=== PATIENT | female | born 1930 | race Caucasian/White ===

== ENCOUNTER → 2018-09-15 | Outpatient (CLI) | payer OTHER, BC | LOC: CIMAGING 14:31 | PROVIDERS: ATTEND Internal Medicine | DX: G31.9 Degenerative disease of nervous system, unspecified (principal) | CPT/HCPCS: 70450-PO ==

== ENCOUNTER 2018-10-23 17:24 | Inpatient (IN) | payer OTHER, BC ==
--- NOTE | 2018-10-23 18:03 | EDPHY ---
H & P Stated Complaint: General malaise/no appetite Time Seen by Provider: 10/23/18 17:46 HPI/ROS: CHIEF COMPLAINT: Cough, vomiting, diarrhea, generalized weakness HISTORY OF PRESENT ILLNESS: The patient is referred to the emergency department from her primary care provider's office for evaluation of cough, vomiting and diarrhea. The patient has had the symptoms for the past several days. She has had a very poor appetite with little in the way of p.o. Intake. The patient does report decreased urine output. Past medical history is significant for bladder cancer and transient renal failure. The patient denies any acute abdominal pain. She denies any recent medication changes. The patient denies any recent travel outside the [place]. REVIEW OF SYSTEMS: A comprehensive 10 point review of systems is otherwise negative aside from elements mentioned in the history of present illness. Source: Patient Exam Limitations: No limitations - Personal History Current Tetanus/Diphtheria Vaccine: Unsure - Medical/Surgical History Hx Asthma: No Hx Chronic Respiratory Disease: No Hx Diabetes: No Hx Cardiac Disease: Yes Hx Renal Disease: Yes Hx Cirrhosis: No Hx Alcoholism: No Hx HIV/AIDS: No Hx Splenectomy or Spleen Trauma: No Other PMH: gout, bladder ca and reconstruction, heart stent x 2, appy, tonsils , L JORGE, gall bladdar removed, TIA - Social History Smoking Status: Former smoker - Physical Exam Exam: General Appearance: Elderly female Eyes: Pupils equal and round no pallor or injection ENT, Mouth: Dry mucous membranes Respiratory: There are no retractions, lungs are clear to auscultation Cardiovascular: Regular rate and rhythm Gastrointestinal: Minimal epigastric tenderness to palpation Neurological: A&O, normal motor function, normal sensory exam, normal cranial nerves Skin: Warm and dry, no rashes Musculoskeletal: Neck is supple nontender Extremities: symmetrical, full range of motion Psychiatric: Patient is oriented X 3, there is no agitation Constitutional: Initial Vital Signs Heart Rate 93 10/23/18 17:30 Respiratory Rate 18 10/23/18 17:30 Blood Pressure 140/76 H 10/23/18 17:30 O2 Delivery Mode Room Air Allergies/Adverse Reactions: celecoxib [From Celebrex] Allergy (Verified 10/23/18 19:20) Unknown Home Medications: Medication Instructions Recorded Aspirin [Aspirin 81mg (*)] 81 mg PO DAILY 10/03/11 Fluticasone Nasal [Flonase Nasal 1 sprays [place]ACH[place] DAILY 03/06/12 [place]] Sodium Bicarbonate [Na Bicarb] 1,300 mg PO BID 03/06/12 Allopurinol [Allopurinol 100 MG 100 mg PO DAILY 02/20/16 (*)] Atorvastatin Calcium [Lipitor 10 10 mg PO HS 02/20/16 mg (*)] Metoprolol Succinate Xr [Toprol Xl 25 mg PO DAILY 02/20/16 25 mg (*)] traMADol [Ultram 50 mg (*)] 50 - 100 mg PO Q8 PRN 02/20/16 Medical Decision Making - Diagnostics Imaging Results: Imaging Impressions Chest X-Ray 10/23/18 17:47 Impression: 1. Bronchitis/airways disease. 2. No focal pneumonia. 3. Mild old benign-appearing compression fractures midthoracic spine. Consider follow-up DEXA bone scan evaluation when the patient's medical condition permits. ED Course/Re-evaluation: The patient presents to the ED with vomiting, diarrhea and cough for the past several days. The patient does appear clinically dehydrated. Chest x-ray demonstrates no evidence of a focal infiltrate. The patient is afebrile in the emergency department. Blood pressure and heart rate are also normal. Workup in the emergency department consisted of laboratory studies which demonstrate acute renal failure. The patient's creatinine is 4 which is up from her baseline of 2. Her acute renal failure is likely secondary to dehydration in the setting of viral gastroenteritis and bronchitis. The patient was treated with 2 L of normal saline in the emergency department. She has no evidence of hyperkalemia. Her EKG demonstrates no significant arrhythmia. The patient will be admitted to the hospitalist service in the setting of her dehydration and acute renal failure. Differential Diagnosis: Differential diagnosis considered includes dehydration, renal failure, bronchitis, pneumonia, viral syndrome - Data Points Laboratory Results: Laboratory Results 10/23/18 18:07 10/23/18 18:07 10/23/18 10/23/18 18:07 18:07 WBC 9.75 10^3/uL H 10^3/uL (3.80-9.50) RBC 4.38 10^6/uL 10^6/uL (4.18-5.33) Hgb 13.6 g/dL g/dL (12.6-16.3) Hct 41.1 % % (38.0-47.0) MCV 93.8 fL fL (81.5-99.8) MCH 31.1 pg pg (27.9-34.1) MCHC 33.1 g/dL g/dL (32.4-36.7) RDW 15.1 % % (11.5-15.2) Plt Count 279 10^3/uL 10^3/uL (150-400) MPV 10.4 fL fL (8.7-11.7) Neut % (Auto) 85.4 % H % (39.3-74.2) Lymph % (Auto) 7.3 % L % (15.0-45.0) [place] % (Auto) 6.4 % % (4.5-13.0) Eos % (Auto) 0.1 % L % (0.6-7.6) Baso % (Auto) 0.4 % % (0.3-1.7) Nucleat RBC Rel Count 0.0 % % (0.0-0.2) Absolute Neuts (auto) 8.33 10^3/uL H 10^3/uL (1.70-6.50) Absolute Lymphs (auto) 0.71 10^3/uL L 10^3/uL (1.00-3.00) Absolute Monos (auto) 0.62 10^3/uL 10^3/uL (0.30-0.80) Absolute Eos (auto) 0.01 10^3/uL L 10^3/uL (0.03-0.40) Absolute Basos (auto) 0.04 10^3/uL 10^3/uL (0.02-0.10) Absolute Nucleated RBC 0.00 10^3/uL 10^3/uL (0-0.01) Immature Gran % 0.4 % % (0.0-1.1) Immature Gran # 0.04 10^3/uL 10^3/uL (0.00-0.10) Sodium 141 mEq/L mEq/L (135-145) Potassium 5.0 mEq/L mEq/L (3.3-5.0) Chloride 116 mEq/L H mEq/L (97-110) Carbon Dioxide 8 mEq/l L* mEq/l (22-31) Anion Gap 17 mEq/L H mEq/L (6-14) BUN 92 mg/dL H mg/dL (7-23) Creatinine 4.0 mg/dL H mg/dL (0.6-1.0) Estimated GFR 11 Glucose 107 mg/dL H mg/dL (70-100) Calcium 9.9 mg/dL mg/dL (8.5-10.4) Total Bilirubin 0.4 mg/dL mg/dL (0.1-1.4) Conjugated Bilirubin 0.4 mg/dL mg/dL (0.0-0.5) Unconjugated Bilirubin 0.0 mg/dL mg/dL (0.0-1.1) AST 23 IU/L IU/L (14-46) ALT 10 IU/L IU/L (9-52) Alkaline Phosphatase 111 IU/L IU/L (38-126) Total Protein 7.5 g/dL g/dL (6.3-8.2) Albumin 4.6 g/dL g/dL (3.5-5.0) Lipase 325 IU/L H IU/L (23-300) Medications Given: Discontinued Medications Sodium Chloride (Ns) 1,000 mls @ 0 mls/hr IV EDNOW ONE; Wide Open PRN Reason: Protocol Stop: 10/23/18 18:40 Last Admin: 10/23/18 18:44 Dose: 1,000 mls Departure - Departure Disposition: [facility] Inpatient Acute Clinical Impression: Gastroenteritis, Bronchitis, Dehydration, Acute renal failure Condition: Good Referrals: James Evans MD [Primary Care Provider] - As per Instructions
[2018-10-23 18:18] LABS: PLATELET COUNT 279 10^3/uL (150-400)
[2018-10-23] MEDS ORDERED: NS 1,000 ML IV ONE ×2 (18:39)
--- NOTE | 2018-10-23 20:39 | CPEKG ---
Test Reason : OPEN Blood Pressure : / mmHG Vent. Rate : 094 BPM Atrial Rate : 095 BPM P-R Int : 190 ms QRS Dur : 097 ms QT Int : 358 ms P-R-T Axes : 078 -41 -03 degrees QTc Int : 448 ms Sinus rhythm Inferior infarct, old Anterior infarct, old Confirmed by Narciso Dave ([id number]) on 10/23/2018 8:38:17 PM Referred By: Confirmed By:Narciso Dave
[2018-10-23] MEDS ORDERED: ONDANSETRON 4 MG/2 ML VIAL IVP PRN (21:22)
[2018-10-23] MEDS ORDERED: ACETAMINOPHEN 325 MG TAB PO PRN (21:22)
[2018-10-23] MEDS ORDERED: ONDANSETRON DISINTEGRATING 4 MG TAB PO PRN (21:22)
[2018-10-23] MEDS ORDERED: traMADol 50 MG TAB PO PRN (21:25)
[2018-10-23] MEDS: NS 1,000 ML IV SCH (22:26)
[2018-10-23] MEDS: HEPARIN 5,000 UNIT/0.5 ML INJ SC SCH (22:36)
--- NOTE | 2018-10-23 23:05 | PDGENHP ---
History and Physical - Chief Complaint weakness, vomiting and diarrhea - History of Present Illness 88yo F with CKD, CAD s/p remote stent placement, TIA here with 3 days of general malaise, anorexia, vomiting and diarrhea. She has been unable to keep anything down over this time. No blood in vomit or stools. She has mostly been staying in bed. Reports mild non-productive cough but no dyspnea. Denies fevers , chills, myalgias, arthralgais, rashes. No sick contacts. No recent travel or antibiotics. She came to ED at recommendation of son with whom she lives. In the ED, she was found to have acute renal insufficiency. She was given 2L normal saline and is being admitted for ABRAHAM, dehydration. Case discussed with ED physician Artemio Dave. Of note, patient reports being quite depressed over the last few months. History Information - Allergies/Home Medication List Allergies/Adverse Reactions: celecoxib [From Celebrex] Allergy (Verified 10/23/18 19:20) Unknown Home Medications: Aspirin [Aspirin 81mg (*)] 81 mg PO DAILY 10/03/11 [Last Taken 02/19/16] Fluticasone Nasal [Flonase Nasal [place]] 1 sprays EACHNARE DAILY 03/06/12 [Last Taken 03/06/12] Sodium Bicarbonate [Na Bicarb] 1,300 mg PO BID 03/06/12 [Last Taken 02/19/16] Allopurinol [Allopurinol 100 MG (*)] 100 mg PO DAILY 02/20/16 [Last Taken ] Atorvastatin Calcium [Lipitor 10 mg (*)] 10 mg PO HS 02/20/16 [Last Taken ] Metoprolol Succinate Xr [Toprol Xl 25 mg (*)] 25 mg PO DAILY 02/20/16 [Last Taken 02/19/16] traMADol [Ultram 50 mg (*)] 50 - 100 mg PO Q8 PRN 02/20/16 [Last Taken 02/19/16] I have personally reviewed and updated: family history, medical history, social history, surgical history - Past Medical History Additional medical history: CKD (baseline Cr ~2.0), CAD s/p stents x2 for ACS in 2000, ? TIA, HTN, HLD, bladder cancer s/p neobladder at [facility] in 2004 - Surgical History Reports: no pertinent surgical hx - Family History Positive for: non-pertinent - Social History Smoking Status: Former smoker Alcohol Use: None Drug Use: None Additional social history: Lives with son, independent in ADLs. about a year ago. Review of Systems Review of Systems: ROS: 10pt was reviewed & negative except for what was stated in HPI & below Physical Exam Physical Exam: Temp Pulse Resp BP Pulse Ox 36.4 C 98 16 129/59 H 98 10/23/18 20:30 10/23/18 20:30 10/23/18 20:30 10/23/18 20:30 10/23/18 20:30 Constitutional: no apparent distress, appears nourished, not in pain Eyes: PERRL, anicteric sclera, EOMI Ears, Nose, Mouth, Throat: moist mucous membranes, hearing normal, ears appear normal, no oral mucosal ulcers Cardiovascular: regular rate and rhythym, no murmur, rub, or gallop, No edema Respiratory: no respiratory distress, no rales or rhonchi, clear to auscultation Gastrointestinal: normoactive bowel sounds, soft, non-tender abdomen, no palpable masses Genitourinary: no bladder fullness, no bladder tenderness Skin: warm, normal color, no rashes or abrasions, no fluctuance, no induration, No mottled Musculoskeletal: full muscle strength, no muscle tenderness, normal joint ROM, no joint effusions Neurologic: AAOx3 Psychiatric: interacting appropriately, not anxious, not encephalopathic, thought process linear Lab Data & Imaging Review 10/23/18 18:07 10/23/18 18:07 WBC 9.75 10^3/uL (3.80-9.50) H 10/23/18 18:07 RBC 4.38 10^6/uL (4.18-5.33) 10/23/18 18:07 Hgb 13.6 g/dL (12.6-16.3) 10/23/18 18:07 Hct 41.1 % (38.0-47.0) 10/23/18 18:07 MCV 93.8 fL (81.5-99.8) 10/23/18 18:07 MCH 31.1 pg (27.9-34.1) 10/23/18 18:07 MCHC 33.1 g/dL (32.4-36.7) 10/23/18 18:07 RDW 15.1 % (11.5-15.2) 10/23/18 18:07 Plt Count 279 10^3/uL (150-400) 10/23/18 18:07 MPV 10.4 fL (8.7-11.7) 10/23/18 18:07 Neut % (Auto) 85.4 % (39.3-74.2) H 10/23/18 18:07 Lymph % (Auto) 7.3 % (15.0-45.0) L 10/23/18 18:07 [place] % (Auto) 6.4 % (4.5-13.0) 10/23/18 18:07 Eos % (Auto) 0.1 % (0.6-7.6) L 10/23/18 18:07 Baso % (Auto) 0.4 % (0.3-1.7) 10/23/18 18:07 Nucleat RBC Rel Count 0.0 % (0.0-0.2) 10/23/18 18:07 Absolute Neuts (auto) 8.33 10^3/uL (1.70-6.50) H 10/23/18 18:07 Absolute Lymphs (auto) 0.71 10^3/uL (1.00-3.00) L 10/23/18 18:07 Absolute Monos (auto) 0.62 10^3/uL (0.30-0.80) 10/23/18 18:07 Absolute Eos (auto) 0.01 10^3/uL (0.03-0.40) L 10/23/18 18:07 Absolute Basos (auto) 0.04 10^3/uL (0.02-0.10) 10/23/18 18:07 Absolute Nucleated RBC 0.00 10^3/uL (0-0.01) 10/23/18 18:07 Immature Gran % 0.4 % (0.0-1.1) 10/23/18 18:07 Immature Gran # 0.04 10^3/uL (0.00-0.10) 10/23/18 18:07 Sodium 141 mEq/L (135-145) 10/23/18 18:07 Potassium 5.0 mEq/L (3.3-5.0) 10/23/18 18:07 Chloride 116 mEq/L (97-110) H 10/23/18 18:07 Carbon Dioxide 8 mEq/l (22-31) L* 10/23/18 18:07 Anion Gap 17 mEq/L (6-14) H 10/23/18 18:07 BUN 92 mg/dL (7-23) H 10/23/18 18:07 Creatinine 4.0 mg/dL (0.6-1.0) H 10/23/18 18:07 Estimated GFR 11 10/23/18 18:07 Glucose 107 mg/dL (70-100) H 10/23/18 18:07 Calcium 9.9 mg/dL (8.5-10.4) 10/23/18 18:07 Total Bilirubin 0.4 mg/dL (0.1-1.4) 10/23/18 18:07 Conjugated Bilirubin 0.4 mg/dL (0.0-0.5) 10/23/18 18:07 Unconjugated Bilirubin 0.0 mg/dL (0.0-1.1) 10/23/18 18:07 AST 23 IU/L (14-46) 10/23/18 18:07 ALT 10 IU/L (9-52) 10/23/18 18:07 Alkaline Phosphatase 111 IU/L (38-126) 10/23/18 18:07 Total Protein 7.5 g/dL (6.3-8.2) 10/23/18 18:07 Albumin 4.6 g/dL (3.5-5.0) 10/23/18 18:07 Lipase 325 IU/L (23-300) H 10/23/18 18:07 Urine Color YELLOW 10/23/18 20:10 Urine Appearance MODERATELY TURBID 10/23/18 20:10 Urine pH 7.0 (5.0-7.5) 10/23/18 20:10 Ur Specific [place] 1.011 (1.002-1.030) 10/23/18 20:10 Urine Protein 2+ (NEGATIVE) H 10/23/18 20:10 Urine Ketones NEGATIVE (NEGATIVE) 10/23/18 20:10 Urine Blood 1+ (NEGATIVE) H 10/23/18 20:10 Urine Nitrate NEGATIVE (NEGATIVE) 10/23/18 20:10 Urine Bilirubin NEGATIVE (NEGATIVE) 10/23/18 20:10 Urine Urobilinogen NEGATIVE EU (0.2-1.0) 10/23/18 20:10 Ur Leukocyte Esterase 3+ (NEGATIVE) H 10/23/18 20:10 Urine RBC 10-15 /hpf (0-3) H 10/23/18 20:10 Urine WBC 50-182 /hpf (0-3) H 10/23/18 20:10 Ur Epithelial Cells 1+ /lpf (NONE-1+) 10/23/18 20:10 Urine Bacteria 1+ /hpf (NONE SEEN) H 10/23/18 20:10 Urine Mucus TRACE /lpf (NONE-1+) 10/23/18 20:10 Urine Glucose NEGATIVE (NEGATIVE) 10/23/18 20:10 Visualized and Interpreted Chest x-ray results: Yes Interpretation: CXR: mild peribronchial thickening c/w bronchitis, no infiltrate or effusion Visualized and Interpreted EKG results: Yes EKG additional interpertation: ECG: NSR, anterior and inferior q waves (old), no acute ischemic changes Assessment & Plan Assessment: 88yo F with CKD, CAD s/p remote stent placement here with 3 days of general malaise, anorexia, vomiting and diarrhea consistent with viral gastroenteritis found to have ABRAHAM. Plan: 1. ABRAHAM on CKD: Consistent with prerenal state from poor PO. Will send urine studies and provide IVF and recheck in AM. If not improving, obtain imaging. 2. Vomiting, diarrhea: Consistent with viral process. GI PCR pending. Supportive care, IVF. 3. Cough: No pneumonia on CXR. Oxygenating well on room air. Respiratory viral panel sent in ED and pending. Trial guaifenesin. 4. Anion gap metabolic acidosis: Likely due to renal failure. Will recheck after fluids. 5. CAD: No anginal symptoms. Continue aspirin, statin. 6. HTN: BP controlled, continue metformin. VTE ppx: SQH Diet: regular Code: DNR Dispo: Admit under observation
[2018-10-24] MEDS: HEPARIN 5,000 UNIT/0.5 ML INJ SC SCH ×3 (06:43→22:02)
--- NOTE | 2018-10-24 08:13 | ASMTLACE ---
PARMINDER Acuity / Level of Answers: Yes Care: Did the patient have an inpatient admission? Comorbidities - select Answers: Cerebrovascular disease all that apply (CVA, TIA, aneurysms, vasc ular dementia) Coronary Artery Disease Moderate or severe liver or renal disease Opioid dependence / Chronic pain Other Notes: Hx of bladder cancer; HLD; HTN # of Emergency department Answers: 1-2 visits in the last 6 months Score: 16 Date Signed: 10/24/2018 08:12 AM Electronically Signed By:Pauline Ferreira
[2018-10-24] MEDS: ASPIRIN 81 MG CHEWABLE TAB PO SCH (09:46)
[2018-10-24] MEDS: SODIUM BICARBONATE 650 MG TAB PO SCH ×2 (09:46→22:03)
[2018-10-24] MEDS: guaiFENesin 600 MG TAB.ER PO SCH ×2 (09:46→22:02)
[2018-10-24] MEDS: METOPROLOL SUCCINATE XR 25 MG TAB PO SCH (09:46)
[2018-10-24] MEDS: FLUTICASONE NASAL 120 SPRAYS/16 GM MDI EACHNARE SCH (09:56)
--- NOTE | 2018-10-24 14:37 | HOSPPROG ---
Hospitalist Progress Note Assessment/Plan: 88yo F with CKD, CAD s/p remote stent placement here with 3 days of general malaise, anorexia, vomiting and diarrhea consistent with viral gastroenteritis found to have ABRAHAM. 1. ABRAHAM on CKD - Consistent with prerenal state from poor PO. - Urine studies sent - Cr improving with IVF, 3.4 this AM from 4.0 yesterday, baseline ~2.0 - Continue to monitor I/O, BMP, avoid nephrotoxic agents 2. Vomiting, diarrhea: Consistent with viral process. GI PCR pending. Supportive care, IVF. 3. Cough: No pneumonia on CXR. Oxygenating well on room air. Respiratory viral panel negative. Trial guaifenesin. 4. Anion gap metabolic acidosis: Likely due to renal failure. Continue to monitor 5. CAD: No anginal symptoms. Continue aspirin, statin. 6. HTN: BP controlled, continue metformin. VTE ppx: SQH Diet: regular Code: DNR Dispo:Pending clinical course, improvement in Cr Subjective: Patient reports no episodes of diarrhea of vomiting since admission Objective: Vital Signs Temp Pulse Resp BP Pulse Ox 36.5 C 73 18 99/52 L 97 10/24/18 12:22 10/24/18 12:22 10/24/18 12:22 10/24/18 12:22 10/24/18 12:22 Microbiology 10/23/18 20:00 Respiratory Panel (PCR) - Final Nasal, Sinus - Swab No Organism Detected By Pcr Laboratory Results 10/24/18 05:00 10/23/18 10/24/18 10/25/18 05:59 05:59 05:59 Intake Total 200 383 Balance 200 383 - Physical Exam Constitutional: chronically ill appearing Eyes: PERRL Ears, Nose, Mouth, Throat: dry mucous membranes Cardiovascular: regular rate and rhythym Respiratory: no respiratory distress Gastrointestinal: soft, non-tender abdomen Genitourinary: no bladder tenderness Skin: warm Neurologic: AAOx3 Psychiatric: interacting appropriately ICD10 Worksheet Patient Problems: Problems Problem Status Onset Acute renal failure Acute Bronchitis Acute Dehydration Acute Gastroenteritis Acute Acute renal failure syndrome Active Hyperkalemia Active Hyponatremia Active Metabolic acidosis Active Pyelonephritis Active Right humeral fracture Acute
[2018-10-24] MEDS: NS 1,000 ML IV SCH (14:57)
--- NOTE | 2018-10-24 15:52 | ASMTCMCOM ---
CM Note CM Note Notes: Pt admitted for viral gastroenteritis and dehydration and renal failure after several days of malaise and nausea, vomiting. Pt is a and her son lives with her. PT is recommending HC and pt is agreeable to [facility]. OT has not evaluated. [facility] available to accept over the weekend if for PT/OT only. CM to follow. D/C Plan: [facility] PT/OT Date Signed: 10/24/2018 03:51 PM Electronically Signed By:Tammie Gillespie
--- NOTE | 2018-10-24 15:53 | PDMN ---
Medical Necessity Medical necessity: Pt meets IP criteria as of 10/24/2018 per and MCG M-170 ( gastroenteritis); los > 2 mn for ongoing tx and management of vomiting and diarrhea consistent with viral gastroenteritis, ABRAHAM on CKD, and metabolic acidosis; requiring IVF, serial labs, and therapies.
[2018-10-24] MEDS: ATORVASTATIN CALCIUM 10 MG TAB PO SCH (22:02)
[2018-10-25] MEDS: HEPARIN 5,000 UNIT/0.5 ML INJ SC SCH ×3 (05:27→21:12)
[2018-10-25] MEDS: NS 1,000 ML IV SCH (05:31)
[2018-10-25] MEDS: ASPIRIN 81 MG CHEWABLE TAB PO SCH (10:06)
[2018-10-25] MEDS: guaiFENesin 600 MG TAB.ER PO SCH ×2 (10:07→21:11)
[2018-10-25] MEDS: SODIUM BICARBONATE 650 MG TAB PO SCH ×2 (10:07→21:11)
[2018-10-25] MEDS: METOPROLOL SUCCINATE XR 25 MG TAB PO SCH (10:08)
--- NOTE | 2018-10-25 13:13 | HOSPPROG ---
Hospitalist Progress Note Assessment/Plan: 88yo F with CKD, CAD s/p remote stent placement here with 3 days of general malaise, anorexia, vomiting and diarrhea consistent with viral gastroenteritis found to have ABRAHAM. 1. ABRAHAM on CKD - Consistent with prerenal state from poor PO. - Cr improving with IVF, 2.6 this AM from 4.0 on admission, baseline ~2.0 - Continue to monitor I/O, BMP, avoid nephrotoxic agents 2. Vomiting, diarrhea: Resolved, Consistent with viral process. GI PCR pending. Supportive care, IVF. 3. Cough: No pneumonia on CXR. Oxygenating well on room air. Respiratory viral panel negative. Trial guaifenesin. 4. Anion gap metabolic acidosis: Likely due to renal failure. Continue to monitor 5. CAD: No anginal symptoms. Continue aspirin, statin. 6. HTN: BP controlled, continue metformin. VTE ppx: SQH Diet: regular Code: DNR Dispo:Pending clinical course, improvement in Cr Subjective: Patient reports no nausea, diarrhea overnight Objective: Vital Signs Temp Pulse Resp BP Pulse Ox 36.8 C 59 L 16 113/72 92 10/25/18 08:00 10/25/18 12:02 10/25/18 12:02 10/25/18 12:02 10/25/18 12:02 Laboratory Results 10/25/18 04:50 10/24/18 10/25/18 10/26/18 05:59 05:59 05:59 Intake Total 1962 Output Total 400 Balance 1562 - Physical Exam Constitutional: no apparent distress Eyes: PERRL Ears, Nose, Mouth, Throat: moist mucous membranes Cardiovascular: regular rate and rhythym Respiratory: no respiratory distress Gastrointestinal: soft, non-tender abdomen Skin: warm Neurologic: AAOx3 Psychiatric: interacting appropriately ICD10 Worksheet Patient Problems: Problems Problem Status Onset Acute renal failure Acute Bronchitis Acute Dehydration Acute Gastroenteritis Acute Acute renal failure syndrome Active Hyperkalemia Active Hyponatremia Active Metabolic acidosis Active Pyelonephritis Active Right humeral fracture Acute
[2018-10-25] MEDS: FLUTICASONE NASAL 120 SPRAYS/16 GM MDI EACHNARE SCH (15:24)
[2018-10-25] MEDS: ATORVASTATIN CALCIUM 10 MG TAB PO SCH (21:11)
[2018-10-26] MEDS: HEPARIN 5,000 UNIT/0.5 ML INJ SC SCH (06:06)
[2018-10-26 08:20] VITALS: BP 113/65
[2018-10-26] MEDS: guaiFENesin 600 MG TAB.ER PO SCH (09:03)
[2018-10-26] MEDS: METOPROLOL SUCCINATE XR 25 MG TAB PO SCH (09:03)
[2018-10-26] MEDS: SODIUM BICARBONATE 650 MG TAB PO SCH (09:03)
[2018-10-26] MEDS: ASPIRIN 81 MG CHEWABLE TAB PO SCH (09:03)
[2018-10-26] MEDS: FLUTICASONE NASAL 120 SPRAYS/16 GM MDI EACHNARE SCH (09:05)
--- NOTE | 2018-10-26 10:18 | PDIAF ---
- Diagnosis Code Status: Do Not Resuscitate - Medication Management Discharge Medications: electronically signed and located in the Home Medication List. - Orders Services needed: Home Care, Physical Therapy, Occupational Therapy Home Care Face to Face: I certify that this patient was under my care and that I had the required [id number] encounter meeting the encounter requirements on the discharge day. My findings support the fact that the patient is homebound as defined in Home Care Face to Face Continued: CMS Chapter 7 Medicare Benefits Manual 30.1.1 , The condition of the patient is such that there exists a normal inability to leave home and consequently, leaving home would require a considerable and taxing effort. Isolation Type: None - Follow Up Care Current Providers and Referrals: James Evans MD [Primary Care Provider] - As per Instructions
--- NOTE | 2018-10-26 13:20 | PDDCSUM ---
Discharge Summary Discharge Summary: Date of Admission: 10/24/2018 Date of Discharge: 10/26/2018 Consults: N/A Followup: PCP Hospital Course Problem List: 88yo F with CKD, CAD admitted with 3 days of general malaise, anorexia, vomiting and diarrhea consistent with viral gastroenteritis found to have ABRAHAM. 1. ABRAHAM on CKD - Consistent with prerenal state from poor PO. - Cr improved with IVF, 2.3 on day of discharge from 4.0 on admission, baseline ~2.0 2. Vomiting, diarrhea: Resolved, Consistent with viral process. Supportive care , s/p IVF. 3. Cough: No pneumonia on CXR. Oxygenating well on room air. Respiratory viral panel negative. 4. Anion gap metabolic acidosis: Likely due to renal failure. Continue to monitor 5. CAD: No anginal symptoms. Continue aspirin, statin. 6. HTN: BP controlled, continue metformin. Time spent on discharge was >35 minutes with >50% of time spent on patient education and counseling.
--- NOTE | 2018-10-26 19:01 | ASMTCMCOM ---
CM Note CM Note Notes: CM Note from Saturday10/25/18 - previously documented under notes in [employer] d/t [employer] downtime: Reviewed chart, spoke with Dr. Raines regarding discharge plan of care, pt's progress. Per MD, plan to monitor pt another noc; possible discharge Saturday. PT recommends HHC. OT recommends HHC vs SNF with 24 hr supervision and ongoing therapy. Per prior CM notes, [facility] (PT/OT) set up. CM will assess pt on Saturday10/26/18 for HHC vs SNF and will continue to follow. Discharge Plan: To be determined, likely home with [facility] (PT/OT) Date Signed: 10/26/2018 07:01 PM Electronically Signed By:Aleshia Turner RN
--- NOTE | 2018-10-26 19:09 | ASDISCHSUM ---
Discharge Information Plan Status:Home with Home Health Medically Cleared to Leave:10/25/2018 Discharge Date:10/26/2018 02:33 PM D/C Disposition:Home Health Service [facility] D/C Disposition:Home, Routine, Self-Care Projected Discharge Date:10/26/2018 11:00 AM Transportation at D/C:Family Discharge Delay Reason: Follow-Up Date:10/26/2018 11:00 AM Discharge Slot:2 - 12:01 pm - 18:00 pm Final Diagnosis:Dehydration, renal failure, bladder cancer Placement Information Referral Type:*Home Health Care Services Referral ID:[id number] Provider Name:[facility] [address] [address] Address 2: City:[place] Selection Factors:Patient/Family Choice State:[place] Patient Contact Information Contact Name:GREGORY Relationship: Address:[address] Work Phone: City:[place] Alternate Phone: [facility]/Zip Code:[place] [address] Email: Financial Information Financial Class:Medicare Primary Plan Desc:MEDICARE OUTPATIENT Primary Plan Number:[id number] Secondary Plan Desc:[employer] FEDERAL PLAN Secondary Plan Number:[id number] Assessment Information LACE LACE Acuity / Level of Answers: Yes Care: Did the patient have an inpatient admission? Comorbidities - select Answers: Cerebrovascular disease all that apply (CVA, TIA, aneurysms, vasc ular dementia) Coronary Artery Disease Moderate or severe liver or renal disease Opioid dependence / Chronic pain Other Notes: Hx of bladder cancer; HLD; HTN # of Emergency department Answers: 1-2 visits in the last 6 months Score: 16 Date Signed: 10/24/2018 08:12 AM Electronically Signed By:Pauline Ferreira [facility] CM Progress Note CM Note CM Note Notes: Pt admitted for viral gastroenteritis and dehydration and renal failure after several days of malaise and nausea, vomiting. Pt is a and her son lives with her. PT is recommending HC and pt is agreeable to [facility]. OT has not evaluated. [facility] available to accept over the weekend if for PT/OT only. CM to follow. D/C Plan: [facility] PT/OT Date Signed: 10/24/2018 03:51 PM Electronically Signed By:Tammie Gillespie [facility] CM Progress Note CM Note CM Note Notes: CM Note from Saturday10/25/18 - previously documented under notes in [employer] d/t [email or web address] downtime: Reviewed chart, spoke with Dr. Raines regarding discharge plan of care, pt's progress. Per MD, plan to monitor pt another noc; possible discharge Saturday. PT recommends HHC. OT recommends HHC vs SNF with 24 hr supervision and ongoing therapy. Per prior CM notes, [facility] (PT/OT) set up. CM will assess pt on Saturday10/26/18 for HHC vs SNF and will continue to follow. Discharge Plan: To be determined, likely home with [facility] (PT/OT) Date Signed: 10/26/2018 07:01 PM Electronically Signed By:Aleshia Turner RN Case Management Discharge Plan Note Case Management Discharge Discharge Order Complete? Answers: Yes Patient to Obtain Answers: Independently Medications Transportation Arranged Answers: Family/Friends Transport will Pick (Date 10/26/2018 12:00 AM & Time) EMTALA Complete Answers: No Notes: N/A Case Management Transport Answers: No Notes: N/A Form Complete Faxed Final Orders Answers: Yes Notes: Sent via [employer]; confirmed receipt with [facility] Agency/Facility Transfer Answers: Yes Notes: Sent via Report Printed & Faxed to [employer]; confirmed Receiving Agency receipt with [facility] Family Notified Answers: Yes Notes: Son to provide transporation Discharge Comments Notes: Reviewed chart, spoke with MARITZA Martin regarding discharge plan of care, pt's progress. Per Mario pt to discharge home today. Met with pt to discuss potential needs. Home health care discussed with pt. Explained PT/OT recommendations. Pt reluctant to accept HHC secondary to potential costs/copays. Encouraged pt to have the PT eval on Saturday10/27/18 and to make a decision after talking to [facility] regarding cost. Pt agreeable. Address and phone number verified. Pt agreeable to homebound status. IM signed; copy placed in chart. Referral sent. Call placed to [facility], on-call RN with [facility]. [facility] agrees to accept pt with start of care for Saturday10/27/18 (PT/OT services). [facility] for [facility] to call pt regarding insurance benefits/cost/copays on Saturday. Pt to follow up as directed. CM available for any further issues or concerns. Discharge Plan: Home with [facility] (PT/OT services) Date Signed: 10/26/2018 07:08 PM Electronically Signed By:Aleshia Turner RN Intervention Information Intervention Type:*Incorrect Registration Date of Service:10/23/2018 10:28 AM Patient Type:Inpatient Staff Member:Prema Ortiz Hours: Discipline: Severity: Comment: Intervention Type:*IM-Signed Date of Service:10/26/2018 06:59 PM Patient Type:Inpatient Staff Member:MARITZA Turner Taylor Hours: Discipline: Severity: Comment:
--- NOTE | 2018-10-26 19:09 | ASMTDCNOTE ---
Case Management Discharge Discharge Order Complete? Answers: Yes Patient to Obtain Answers: Independently Medications Transportation Arranged Answers: Family/Friends Transport will Pick (Date 10/26/2018 12:00 AM & Time) EMTALA Complete Answers: No Notes: N/A Case Management Transport Answers: No Notes: N/A Form Complete Faxed Final Orders Answers: Yes Notes: Sent via [employer]; confirmed receipt with [facility] Agency/Facility Transfer Answers: Yes Notes: Sent via Report Printed & Faxed to [employer]; confirmed Receiving Agency receipt with [facility] Family Notified Answers: Yes Notes: Son to provide transporation Discharge Comments Notes: Reviewed chart, spoke with MARITZA Martin regarding discharge plan of care, pt's progress. Per Mario, pt to discharge home today. Met with pt to discuss potential needs. Home health care discussed with pt. Explained PT/OT recommendations. Pt reluctant to accept HHC secondary to potential costs/copays. Encouraged pt to have the PT eval on Saturday10/27/18 and to make a decision after talking to [facility] regarding cost. Pt agreeable. Address and phone number verified. Pt agreeable to homebound status. IM signed; copy placed in chart. Referral sent. Call placed to [facility], on-call RN with [facility]. [facility] agrees to accept pt with start of care for Saturday10/27/18 (PT/OT services). LVM for [facility] to call pt regarding insurance benefits/cost/copays on Saturday. Pt to follow up as directed. CM available for any further issues or concerns. Discharge Plan: Home with [facility] (PT/OT services) Date Signed: 10/26/2018 07:08 PM Electronically Signed By:Aleshia Turner RN
== END 2018-10-26 14:33 | disposition home or self-care (01) | DRG 683 ==
LOC: INTOOBSV 19:32 → F1N 21:04 → OBSVTOIN 10-24 14:35
PROVIDERS: ADMIT Internal Medicine; ATTEND Internal Medicine
DX: N17.9 Acute kidney failure, unspecified (principal); A08.4 Viral intestinal infection, unspecified; R05 Cough; E87.2 Acidosis; I12.9 Hypertensive chronic kidney disease with stage 1 through stage 4 chronic kidney disease, or unspecified chronic kidney disease; N18.9 Chronic kidney disease, unspecified; I25.10 Atherosclerotic heart disease of native coronary artery without angina pectoris; M10.9 Gout, unspecified; E78.5 Hyperlipidemia, unspecified; Z85.51 Personal history of malignant neoplasm of bladder; Z96.642 Presence of left artificial hip joint; Z87.891 Personal history of nicotine dependence; Z95.5 Presence of coronary angioplasty implant and graft; Z86.73 Personal history of transient ischemic attack (TIA), and cerebral infarction without residual deficits; Z66 Do not resuscitate
CPT/HCPCS: 97161-GP; 97166-GO; 97535-GO; G0378; G8978-GP-CK; G8979-GP-CJ; G8987-GO-CK; G8988-GO-CJ; J1644

== ENCOUNTER 2018-11-29 16:56 | Inpatient (IN) | payer OTHER, BC ==
[2018-11-29] MEDS ORDERED: NS 1,000 ML IV ONE (17:16)
[2018-11-29] MEDS ORDERED: ONDANSETRON 4 MG/2 ML VIAL IVP ONE (17:16)
[2018-11-29 17:21] LABS: PLATELET COUNT 336 10^3/uL (150-400)
--- NOTE | 2018-11-29 17:22 | EDPHY ---
H & P Stated Complaint: not getting out of bed, n/v Time Seen by Provider: 11/29/18 17:06 HPI/ROS: CHIEF COMPLAINT: Generalized weakness, vomiting HISTORY OF PRESENT ILLNESS: The patient is an 88-year-old female with a history of bladder cancer and a neobladder as well as appendectomy, hysterectomy and cholecystectomy. She was admitted 1 month ago for what seem to be a viral gastroenteritis and acute kidney injury. Her symptoms improved with fluids and nausea medication. Her family states that for 10 days after she went home she received physical therapy and seem to do quite better however about 2 weeks ago she told them she felt depressed and is no longer getting out of bed. Both of her sons are here and states that she only gets out of bed when she needs to go to the bathroom and that she has not been eating or drinking much. She has become gradually weak. She complains of generalized weakness. No focal weakness. Today she began vomiting whenever she tried to eat or drink. She complained to them of mild abdominal pain but denies abdominal pain to me. No fevers. They also report mild chronic diarrhea. She also has a mild chronic cough for the last year. She had an x-ray during her previous admission that was negative as was a respiratory viral panel. Severity: Moderate Modifying factors: None REVIEW OF SYSTEMS: Constitutional: denies: chills, fever, recent illness, recent injury EENTM: denies: blurred vision, double vision, nose congestion Respiratory: Chronic cough Cardiac: denies: chest pain, irregular heart rate, lightheadedness, palpitations Gastrointestinal/Abdominal: See HPI Genitourinary: denies: dysuria, frequency, hematuria, pain Musculoskeletal: denies: joint pain, muscle pain Skin: denies: lesions, rash, jaundice, bruising Neurological: denies: headache, numbness, paresthesia, tingling, dizziness, weakness Hematologic/Lymphatic: denies: blood clots, easy bleeding, easy bruising Immunologic/allergic: denies: HIV/AIDS, transplant 10 systems reviewed and negative except as noted EXAM: GENERAL: Thin, dehydrated HEAD: Atraumatic, normocephalic. EYES: Pupils equal round and reactive to light, extraocular movements intact, sclera anicteric, conjunctiva are normal. ENT: TMs normal, nares patent, oropharynx clear without exudates. Somewhat dry mucous membranes. NECK: Normal range of motion, supple without lymphadenopathy or JVD. LUNGS: Dry Cough, Breath sounds clear to auscultation bilaterally and equal. No wheezes rales or rhonchi. HEART: Regular rate and rhythm without murmurs, rubs or gallops. ABDOMEN: Soft, nontender, normoactive bowel sounds. No guarding, no rebound. No masses appreciated. Surgical scars appreciated BACK: No CVA tenderness, no spinal tenderness, step-offs or deformities EXTREMITIES: Normal range of motion, no pitting or edema. No clubbing or cyanosis. NEUROLOGICAL: Cranial nerves II through XII grossly intact. Normal speech, normal gait. 5/5 strength, normal movement in all extremities, normal sensation , normal reflexes PSYCH: Normal mood, normal affect. SKIN: Warm, dry, normal turgor, no visible rashes or lesions. Source: Patient, Family, EMS, Old records Exam Limitations: No limitations - Medical/Surgical History Hx Asthma: No Hx Chronic Respiratory Disease: No Hx Diabetes: No Hx Cardiac Disease: Yes Hx Renal Disease: Yes Hx Cirrhosis: No Hx Alcoholism: No Hx HIV/AIDS: No Hx Splenectomy or Spleen Trauma: No Other PMH: gout, bladder ca and reconstruction, heart stent x 2, appy, tonsils , L JORGE, gall bladdar removed, TIA, hysterectomy - Family History Significant Family History: No pertinent family hx - Social History Smoking Status: Former smoker Alcohol Use: None Constitutional: Initial Vital Signs Temperature (C) 36.2 C 11/29/18 17:10 Heart Rate 113 H 11/29/18 17:10 Respiratory Rate 18 11/29/18 17:10 Blood Pressure 141/67 H 11/29/18 17:10 O2 Sat (%) 94 11/29/18 17:10 O2 Delivery Mode Room Air Allergies/Adverse Reactions: celecoxib Allergy (Unknown, Unverified 10/27/18 10:25) Unknown Home Medications: Medication Instructions Recorded Fluticasone Nasal [Flonase Nasal 1 sprays [place] HS 03/06/12 [place]] Sodium Bicarbonate [Na Bicarb] 1,300 mg PO BID 03/06/12 Allopurinol [Allopurinol 100 MG 100 mg PO DAILY 02/20/16 (*)] Metoprolol Succinate Xr [Toprol Xl 25 mg PO DAILY 02/20/16 25 mg (*)] Aspirin EC [Aspirin EC 81 mg (*)] 81 mg PO DAILY 11/29/18 Medical Decision Making - Diagnostics EKG Interpretation: An EKG obtained and was read and documented in trace view. Please see trace view for full reading and report. Sinus tachycardia, similar to previous Imaging Results: Imaging Impressions Abdomen/Pelvis CT 11/29/18 17:38 Impression: 1. Postsurgical changes of bladder resection and bladder reconstruction, stable in appearance. No evidence for hydronephrosis in either kidney. Renal cortical scarring in both kidneys. 2. Fluid distended stomach with probable reflux in the distal esophagus. No evidence for a small bowel obstruction or diverticulitis. 3. Status post cholecystectomy. 4. Other chronic findings, as above. Results called and discussed with Oseas Xiong MD on November 29, 2018 at 1809 hours. Imaging: Discussed imaging studies w/ scallop shucker Radiologist ED Course/Re-evaluation: 3:40 p.m. I discussed the case with Dr. Alvarez who will admit. Differential Diagnosis: Partial list of the Differential diagnosis considered include but were not limited to; dehydration, generalized weakness, depression, acute kidney injury , obstruction and although unlikely based on the history and physical exam, I also considered ischemia, volvulus, UTI. - Data Points Laboratory Results: Laboratory Results 11/29/18 17:00 11/29/18 17:00 11/29/18 11/29/18 17:00 17:00 WBC 9.45 10^3/uL 10^3/uL (3.80-9.50) RBC 4.42 10^6/uL 10^6/uL (4.18-5.33) Hgb 13.5 g/dL g/dL (12.6-16.3) Hct 41.5 % % (38.0-47.0) MCV 93.9 fL fL (81.5-99.8) MCH 30.5 pg pg (27.9-34.1) MCHC 32.5 g/dL g/dL (32.4-36.7) RDW 15.6 % H % (11.5-15.2) Plt Count 336 10^3/uL 10^3/uL (150-400) MPV 10.9 fL fL (8.7-11.7) Neut % (Auto) 81.4 % H % (39.3-74.2) Lymph % (Auto) 12.9 % L % (15.0-45.0) [place] % (Auto) 4.6 % % (4.5-13.0) Eos % (Auto) 0.2 % L % (0.6-7.6) Baso % (Auto) 0.5 % % (0.3-1.7) Nucleat RBC Rel Count 0.0 % % (0.0-0.2) Absolute Neuts (auto) 7.69 10^3/uL H 10^3/uL (1.70-6.50) Absolute Lymphs (auto) 1.22 10^3/uL 10^3/uL (1.00-3.00) Absolute Monos (auto) 0.43 10^3/uL 10^3/uL (0.30-0.80) Absolute Eos (auto) 0.02 10^3/uL L 10^3/uL (0.03-0.40) Absolute Basos (auto) 0.05 10^3/uL 10^3/uL (0.02-0.10) Absolute Nucleated RBC 0.00 10^3/uL 10^3/uL (0-0.01) Immature Gran % 0.4 % % (0.0-1.1) Immature Gran # 0.04 10^3/uL 10^3/uL (0.00-0.10) Sodium 140 mEq/L mEq/L (135-145) Potassium 4.6 mEq/L mEq/L (3.5-5.2) Chloride 118 mEq/L H mEq/L (97-110) Carbon Dioxide 7 mEq/l L* mEq/l (22-31) Anion Gap 15 mEq/L H mEq/L (6-14) BUN 81 mg/dL H mg/dL (7-23) Creatinine 3.6 mg/dL H mg/dL (0.6-1.0) Estimated GFR 12 Glucose 71 mg/dL mg/dL (70-100) Calcium 10.2 mg/dL mg/dL (8.5-10.4) Total Bilirubin 0.5 mg/dL mg/dL (0.1-1.4) Conjugated Bilirubin 0.5 mg/dL mg/dL (0.0-0.5) Unconjugated Bilirubin 0.0 mg/dL mg/dL (0.0-1.1) AST 21 IU/L IU/L (14-46) ALT 11 IU/L IU/L (9-52) Alkaline Phosphatase 112 IU/L IU/L (38-126) Total Protein 7.1 g/dL g/dL (6.3-8.2) Albumin 4.3 g/dL g/dL (3.5-5.0) Lipase 1339 IU/L H IU/L (23-300) Medications Given: Discontinued Medications Sodium Chloride (Ns) 1,000 mls @ 0 mls/hr IV EDNOW ONE; Wide Open PRN Reason: Protocol Stop: 11/29/18 17:17 Last Admin: 11/29/18 17:21 Dose: 1,000 mls Ondansetron HCl (Zofran) 4 mg IVP EDNOW ONE Stop: 11/29/18 17:17 Last Admin: 11/29/18 17:20 Dose: 4 mg Departure - Departure Disposition: [facility] Acute Clinical Impression: Generalized weakness Vomiting Qualifiers: Vomiting type: unspecified Vomiting Intractability: non-intractable Nausea presence: with nausea Qualified Code(s): R11.2 - Nausea with vomiting, unspecified Depression Qualifiers: Depression Type: other depression Qualified Code(s): F32.89 - Other specified depressive episodes Acute renal failure Qualifiers: Acute renal failure type: unspecified Qualified Code(s): N17.9 - Acute kidney failure, unspecified Condition: Fair
[2018-11-29] MEDS ORDERED: ONDANSETRON DISINTEGRATING 4 MG TAB PO PRN (18:36)
[2018-11-29] MEDS ORDERED: ACETAMINOPHEN 325 MG TAB PO PRN (18:36)
[2018-11-29] MEDS ORDERED: ONDANSETRON 4 MG/2 ML VIAL IVP PRN (18:36)
[2018-11-29] MEDS ORDERED: NS 1,000 ML IV SCH (18:45)
--- NOTE | 2018-11-29 18:58 | CPEKG ---
Test Reason : OPEN Blood Pressure : / mmHG Vent. Rate : 102 BPM Atrial Rate : 104 BPM P-R Int : 177 ms QRS Dur : 122 ms QT Int : 364 ms P-R-T Axes : 000 -44 124 degrees QTc Int : 475 ms Sinus tachycardia Ventricular premature complex Left bundle branch block Confirmed by Oseas Xiong ([id number]) on 11/29/2018 6:57:42 PM Referred By: Confirmed By:Oseas Xiong
--- NOTE | 2018-11-29 19:30 | PDGENHP ---
<Margie Chun - Last Filed: 11/29/18 19:47> History and Physical - Chief Complaint ABRAHAM, dehydration - History of Present Illness This is a 88 y/o female who was recently admitted one month prior with what was felt to be viral gastroenteritis and acute kidney injury d/t 3 days worth of general malaise, anorexia, vomiting and diarrhea. She was given IV fluids and anti-emetics and was discharged with much improvement to her renal function. She presents now with 2 weeks worth of progressive decline per sons who were at bedside. She hasn't had much to eat or drink and only gets out of bed to go to the bathroom. She thinks she is sad about the passing of her which was 1-2 years ago and "life just isn't the same." Endorses mild nausea, abdominal tenderness however with palpation, denies tenderness. Denies chest pains, shortness of breath, dysuria, diarrhea. Endorses vomiting small volume over the last 3-[address] scan revealed no acute processes. She is being admitted for acute kidney injury and monitoring. Past Medical/Surgical History 1. CKD (baseline Cr ~2.0) 2. CAD s/p stents x2 for ACS in 2000 3. TIA 4. Hypertension 5. Hyperlipidemia 6. 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 Former smoker. Lives with one of her sons. Independent with ADLs. 2. Denies illicit drug use. Rarely drinks alcohol. History Information - Allergies/Home Medication List Allergies/Adverse Reactions: celecoxib Allergy (Unknown, Unverified 10/27/18 10:25) Unknown Home Medications: Fluticasone Nasal [Flonase Nasal [place]] 1 sprays EACHNARE HS 03/06/12 [Last Taken 11/15/18] Sodium Bicarbonate [Na Bicarb] 1,300 mg PO BID 03/06/12 [Last Taken 11/28/18] Allopurinol [Allopurinol 100 MG (*)] 100 mg PO DAILY 02/20/16 [Last Taken ] Metoprolol Succinate Xr [Toprol Xl 25 mg (*)] 25 mg PO DAILY 02/20/16 [Last Taken 11/28/18] Aspirin EC [Aspirin EC 81 mg (*)] 81 mg PO DAILY 11/29/18 [Last Taken 01/04/19] I have personally reviewed and updated: family history, medical history, social history, surgical history Past Medical History: See HPI list - Surgical History Reports: no pertinent surgical hx - Family History Positive for: non-pertinent - Social History Smoking Status: Former smoker Alcohol Use: Rarely Drug Use: None Review of Systems Review of Systems: ROS: 10pt was reviewed & negative except for what was stated in HPI & below Constitutional: Reports: malaise, weakness EENMT: Reports: no symptoms Cardiac: Reports: no symptoms Respiratory: Reports: no symptoms Gastrointestinal: Reports: vomitting, abdominal pain, nausea Genitourinary: Reports: no symptoms Muscolosketal: Reports: no symptoms Skin: Reports: no symptoms Neurological: Reports: depressed, weakness Hematologic/Lymphatic: Reports: no symptoms Immunologic/Allergy: Reports: other (See allergy list) Physical Exam Physical Exam: Lab data and imaging reviewed Temp Pulse Resp BP Pulse Ox 36.2 C 113 H 18 141/67 H 94 11/29/18 17:10 11/29/18 17:10 11/29/18 17:10 11/29/18 17:10 11/29/18 17:10 Constitutional: no apparent distress, appears nourished, not in pain Eyes: PERRL, anicteric sclera, EOMI Ears, Nose, Mouth, Throat: hearing normal, ears appear normal, no oral mucosal ulcers, dry mucous membranes Cardiovascular: regular rate and rhythym, no murmur, rub, or gallop, No edema Peripheral Pulses: 1+: dorsalis-pedis (R) (Radial 2+), dorsalis-pedis (L) ( Radial 2+) Respiratory: no respiratory distress, no rales or rhonchi, clear to auscultation Gastrointestinal: normoactive bowel sounds, soft, non-tender abdomen, no palpable masses Genitourinary: no bladder fullness, no bladder tenderness Skin: warm, normal color, no rashes or abrasions, no fluctuance, no induration, No mottled Musculoskeletal: generalized weakness Neurologic: AAOx3, sensation intact bilaterally, CN II-XII Intact Psychiatric: interacting appropriately, not encephalopathic, thought process linear, depressed Lymph, Heme, Immunologic: no cervical LAD, no supraclavicular LAD Lab Data & Imaging Review 11/29/18 17:00 11/29/18 17:00 WBC 9.45 10^3/uL (3.80-9.50) 11/29/18 17:00 RBC 4.42 10^6/uL (4.18-5.33) 11/29/18 17:00 Hgb 13.5 g/dL (12.6-16.3) 11/29/18 17:00 Hct 41.5 % (38.0-47.0) 11/29/18 17:00 MCV 93.9 fL (81.5-99.8) 11/29/18 17:00 MCH 30.5 pg (27.9-34.1) 11/29/18 17:00 MCHC 32.5 g/dL (32.4-36.7) 11/29/18 17:00 RDW 15.6 % (11.5-15.2) H 11/29/18 17:00 Plt Count 336 10^3/uL (150-400) 11/29/18 17:00 MPV 10.9 fL (8.7-11.7) 11/29/18 17:00 Neut % (Auto) 81.4 % (39.3-74.2) H 11/29/18 17:00 Lymph % (Auto) 12.9 % (15.0-45.0) L 11/29/18 17:00 [place] % (Auto) 4.6 % (4.5-13.0) 11/29/18 17:00 Eos % (Auto) 0.2 % (0.6-7.6) L 11/29/18 17:00 Baso % (Auto) 0.5 % (0.3-1.7) 11/29/18 17:00 Nucleat RBC Rel Count 0.0 % (0.0-0.2) 11/29/18 17:00 Absolute Neuts (auto) 7.69 10^3/uL (1.70-6.50) H 11/29/18 17:00 Absolute Lymphs (auto) 1.22 10^3/uL (1.00-3.00) 11/29/18 17:00 Absolute Monos (auto) 0.43 10^3/uL (0.30-0.80) 11/29/18 17:00 Absolute Eos (auto) 0.02 10^3/uL (0.03-0.40) L 11/29/18 17:00 Absolute Basos (auto) 0.05 10^3/uL (0.02-0.10) 11/29/18 17:00 Absolute Nucleated RBC 0.00 10^3/uL (0-0.01) 11/29/18 17:00 Immature Gran % 0.4 % (0.0-1.1) 11/29/18 17:00 Immature Gran # 0.04 10^3/uL (0.00-0.10) 11/29/18 17:00 Sodium 140 mEq/L (135-145) 11/29/18 17:00 Potassium 4.6 mEq/L (3.5-5.2) 11/29/18 17:00 Chloride 118 mEq/L (97-110) H 11/29/18 17:00 Carbon Dioxide 7 mEq/l (22-31) L* 11/29/18 17:00 Anion Gap 15 mEq/L (6-14) H 11/29/18 17:00 BUN 81 mg/dL (7-23) H 11/29/18 17:00 Creatinine 3.6 mg/dL (0.6-1.0) H 11/29/18 17:00 Estimated GFR 12 11/29/18 17:00 Glucose 71 mg/dL (70-100) 11/29/18 17:00 Calcium 10.2 mg/dL (8.5-10.4) 11/29/18 17:00 Total Bilirubin 0.5 mg/dL (0.1-1.4) 11/29/18 17:00 Conjugated Bilirubin 0.5 mg/dL (0.0-0.5) 11/29/18 17:00 Unconjugated Bilirubin 0.0 mg/dL (0.0-1.1) 11/29/18 17:00 AST 21 IU/L (14-46) 11/29/18 17:00 ALT 11 IU/L (9-52) 11/29/18 17:00 Alkaline Phosphatase 112 IU/L (38-126) 11/29/18 17:00 Total Protein 7.1 g/dL (6.3-8.2) 11/29/18 17:00 Albumin 4.3 g/dL (3.5-5.0) 11/29/18 17:00 Lipase 1339 IU/L (23-300) H 11/29/18 17:00 Urine Color RED 11/29/18 18:45 Urine Appearance MODERATELY TURBID 11/29/18 18:45 Urine pH 6.0 (5.0-7.5) 11/29/18 18:45 Ur Specific [place] 1.011 (1.002-1.030) 11/29/18 18:45 Urine Protein 2+ (NEGATIVE) H 11/29/18 18:45 Urine Ketones NEGATIVE (NEGATIVE) 11/29/18 18:45 Urine Blood 1+ (NEGATIVE) H 11/29/18 18:45 Urine Nitrate NEGATIVE (NEGATIVE) 11/29/18 18:45 Urine Bilirubin NEGATIVE (NEGATIVE) 11/29/18 18:45 Urine Urobilinogen NEGATIVE EU (0.2-1.0) 11/29/18 18:45 Ur Leukocyte Esterase 3+ (NEGATIVE) H 11/29/18 18:45 Urine RBC 1-3 /hpf (0-3) 11/29/18 18:45 Urine WBC 50-182 /hpf (0-3) H 11/29/18 18:45 Ur Epithelial Cells TRACE /lpf (NONE-1+) 11/29/18 18:45 Urine Bacteria 2+ /hpf (NONE SEEN) H 11/29/18 18:45 Urine Glucose NEGATIVE (NEGATIVE) 11/29/18 18:45 Assessment & Plan Plan: 88 y/o female presenting with 2 weeks worth of physical decline by poor appetite and poor fluid intake. 1. Acute renal failure on CKD -Consistent with prerenal state from poor PO intake. Urine studies pending. Will provide IVF and recheck in morning. 2. Vomiting -Anti-emetics PRN -Supportive care 3. Depression -Behavioral RN consult 4. Generalized weakness: I suspect this is from lack of nutrition and fluids -Encourage diet -Supportive care, IVF -PT/OT to evaluate 4. Pancreatitis: elevated lipase of 1339 -Continue to monitor, starting off with a clear liquid diet with avoiding fats and may progress to regular diet as tolerated by pt -IVF 5. Metabolic acidosis: elevated anion gap, bicarb decreased suspecting from hypovolemia -IVF -Continue sodium bicarb 6. Hypertension: continue metoprolol 7. Gout: holding allopurinol for now d/t ABRAHAM Diet: Clears, may ADAT per pt Code: Full VTE ppx: SCDs Dispo: Admit to obs <Brian Alvarez - Last Filed: 11/29/18 19:51> History and Physical - History of Present Illness Review of Systems Review of Systems: Physical Exam Physical Exam: Temp Pulse Resp BP Pulse Ox 36.2 C 101 H 18 133/65 H 95 11/29/18 17:10 11/29/18 19:25 11/29/18 19:25 11/29/18 19:25 11/29/18 19:25 Lab Data & Imaging Review 11/29/18 17:00 11/29/18 17:00 WBC 9.45 10^3/uL (3.80-9.50) 11/29/18 17:00 RBC 4.42 10^6/uL (4.18-5.33) 11/29/18 17:00 Hgb 13.5 g/dL (12.6-16.3) 11/29/18 17:00 Hct 41.5 % (38.0-47.0) 11/29/18 17:00 MCV 93.9 fL (81.5-99.8) 11/29/18 17:00 MCH 30.5 pg (27.9-34.1) 11/29/18 17:00 MCHC 32.5 g/dL (32.4-36.7) 11/29/18 17:00 RDW 15.6 % (11.5-15.2) H 11/29/18 17:00 Plt Count 336 10^3/uL (150-400) 11/29/18 17:00 MPV 10.9 fL (8.7-11.7) 11/29/18 17:00 Neut % (Auto) 81.4 % (39.3-74.2) H 11/29/18 17:00 Lymph % (Auto) 12.9 % (15.0-45.0) L 11/29/18 17:00 [place] % (Auto) 4.6 % (4.5-13.0) 11/29/18 17:00 Eos % (Auto) 0.2 % (0.6-7.6) L 11/29/18 17:00 Baso % (Auto) 0.5 % (0.3-1.7) 11/29/18 17:00 Nucleat RBC Rel Count 0.0 % (0.0-0.2) 11/29/18 17:00 Absolute Neuts (auto) 7.69 10^3/uL (1.70-6.50) H 11/29/18 17:00 Absolute Lymphs (auto) 1.22 10^3/uL (1.00-3.00) 11/29/18 17:00 Absolute Monos (auto) 0.43 10^3/uL (0.30-0.80) 11/29/18 17:00 Absolute Eos (auto) 0.02 10^3/uL (0.03-0.40) L 11/29/18 17:00 Absolute Basos (auto) 0.05 10^3/uL (0.02-0.10) 11/29/18 17:00 Absolute Nucleated RBC 0.00 10^3/uL (0-0.01) 11/29/18 17:00 Immature Gran % 0.4 % (0.0-1.1) 11/29/18 17:00 Immature Gran # 0.04 10^3/uL (0.00-0.10) 11/29/18 17:00 Sodium 140 mEq/L (135-145) 11/29/18 17:00 Potassium 4.6 mEq/L (3.5-5.2) 11/29/18 17:00 Chloride 118 mEq/L (97-110) H 11/29/18 17:00 Carbon Dioxide 7 mEq/l (22-31) L* 11/29/18 17:00 Anion Gap 15 mEq/L (6-14) H 11/29/18 17:00 BUN 81 mg/dL (7-23) H 11/29/18 17:00 Creatinine 3.6 mg/dL (0.6-1.0) H 11/29/18 17:00 Estimated GFR 12 11/29/18 17:00 Glucose 71 mg/dL (70-100) 11/29/18 17:00 Calcium 10.2 mg/dL (8.5-10.4) 11/29/18 17:00 Total Bilirubin 0.5 mg/dL (0.1-1.4) 11/29/18 17:00 Conjugated Bilirubin 0.5 mg/dL (0.0-0.5) 11/29/18 17:00 Unconjugated Bilirubin 0.0 mg/dL (0.0-1.1) 11/29/18 17:00 AST 21 IU/L (14-46) 11/29/18 17:00 ALT 11 IU/L (9-52) 11/29/18 17:00 Alkaline Phosphatase 112 IU/L (38-126) 11/29/18 17:00 Total Protein 7.1 g/dL (6.3-8.2) 11/29/18 17:00 Albumin 4.3 g/dL (3.5-5.0) 11/29/18 17:00 Lipase 1339 IU/L (23-300) H 11/29/18 17:00 Urine Color RED 11/29/18 18:45 Urine Appearance MODERATELY TURBID 11/29/18 18:45 Urine pH 6.0 (5.0-7.5) 11/29/18 18:45 Ur Specific [place] 1.011 (1.002-1.030) 11/29/18 18:45 Urine Protein 2+ (NEGATIVE) H 11/29/18 18:45 Urine Ketones NEGATIVE (NEGATIVE) 11/29/18 18:45 Urine Blood 1+ (NEGATIVE) H 11/29/18 18:45 Urine Nitrate NEGATIVE (NEGATIVE) 11/29/18 18:45 Urine Bilirubin NEGATIVE (NEGATIVE) 11/29/18 18:45 Urine Urobilinogen NEGATIVE EU (0.2-1.0) 11/29/18 18:45 Ur Leukocyte Esterase 3+ (NEGATIVE) H 11/29/18 18:45 Urine RBC 1-3 /hpf (0-3) 11/29/18 18:45 Urine WBC 50-182 /hpf (0-3) H 11/29/18 18:45 Ur Epithelial Cells TRACE /lpf (NONE-1+) 11/29/18 18:45 Urine Bacteria 2+ /hpf (NONE SEEN) H 11/29/18 18:45 Urine Glucose NEGATIVE (NEGATIVE) 11/29/18 18:45 Assessment & Plan Assessment: Acute renal failure (Acute) Depression (Acute) Generalized weakness (Acute) Vomiting (Acute) Plan: I have reviewed vitals, labs, imaging and personally examined the patient. Discussed with Leny North ALTERNATIVE DISPUTE RESOLUTION MEDIATOR and agree with her plan as outlined above. Please see separate note for additional details.
--- NOTE | 2018-11-29 19:55 | HOSPPROG ---
Hospitalist Progress Note Assessment/Plan: Case discussed with Leny Chun SURVEILLANCE SUPERVISOR. I agree with her plan with the following exceptions: Briefly, 88yo F with history of CKD, CAD s/p remote stenting, TIA, bladder cancer s/p neobladder formation, depression/bereavement over loss of 1.5 years ago, recent hospitalization 09/2018 for viral gastroenteritis and ABRAHAM presents at urging of sons due to several weeks of decline, poor PO, nausea/ vomiting. Labs show creatinine 3.6 (2.3 after last hospital stay, prior baseline around 2.0), lipase 1300, significant metabolic acidemia (bicarb 7) with elevated anion gap (15). Abdominal CT shows no acute findings. Non- peritoneal abdomen. Stays in bed most of day. Assessment/Plan: 1. ABRAHAM on CKD: Likely prerenal. Creatinine didn't really normalize after last hospitalization. Agree with checking urine lytes, IVF. Consider renal imaging if not improving as expected. 2. Mild pancreatitis: Gallbladder out. No biliary ductal dilation on CT. No etoh. Clear liquids, anti-emetics, fluids. 3. Metabolic acidosis: Combo of anion gap and non-anion gap related to GI losses and renal failure. Hydrate and monitor BMP. 4. Abnormal UA: No urinary symptoms so will hold on antibiotics. Check urine culture. 5. Depression: Rather severe, spending most of day in bed. Mostly related to loss of last year. Consult behavioral health. 6. H/o CAD, TIA: No current symptoms. Continue aspirin. Not on statin, which is reasonable in an 88year old. 7. Deconditioning: Mostly related to depression. Consult PT/OT. Would benefit from home health services. Consider palliative care as well. Dispo: Admit under observation Objective: Vital Signs Temp Pulse Resp BP Pulse Ox 36.2 C 101 H 18 133/65 H 95 11/29/18 17:10 11/29/18 19:25 11/29/18 19:25 11/29/18 19:25 11/29/18 19:25 11/28/18 11/29/18 11/30/18 05:59 05:59 05:59 Output Total 15 Balance -15 ICD10 Worksheet Patient Problems: Problems Problem Status Onset Acute renal failure Acute Depression Acute Generalized weakness Acute Vomiting Acute Acute renal failure syndrome Active Hyperkalemia Active Hyponatremia Active Metabolic acidosis Active Pyelonephritis Active Bronchitis Acute Dehydration Acute Gastroenteritis Acute Right humeral fracture Acute
[2018-11-29] MEDS: SODIUM BICARBONATE 650 MG TAB PO SCH (22:11)
[2018-11-29] MEDS: FLUTICASONE NASAL 120 SPRAYS/16 GM MDI EACHNARE SCH (22:12)
[2018-11-30 05:27] LABS: PLATELET COUNT 234 10^3/uL (150-400)
[2018-11-30] MEDS ORDERED: METOPROLOL SUCCINATE XR 25 MG TAB PO SCH (09:00)
[2018-11-30] MEDS: ASPIRIN EC 81 MG TAB PO SCH (09:24)
[2018-11-30] MEDS: SODIUM BICARBONATE 650 MG TAB PO SCH (09:24)
[2018-11-30] MEDS ORDERED: LR 1,000 ML IV SCH (10:30)
--- NOTE | 2018-11-30 14:35 | HOSPPROG ---
Hospitalist Progress Note Assessment/Plan: The patient is a 88 year old female with PMH CKD St IV who was admitted for failure to thrive. This patient is new to me. Reviewed patient's chart/records for this visit. ASSESSMENT/PLAN: ABRAHAM on CKD St IV with acute dehydration Pancreatitis Acidosis, 2/2 above Depression, severe Grief Failure to thrive Generalized weakness H/o CAD/TIA -Increased IVF today as pt continued to be dehydrated. LR as it is more basic. -Encouraged po intake on clear liquid diet, but concerned that pt will not consume much. Changing IVF to D5-0.5NS. -PT/OT/ISU. -RD consult. -Continue home meds, including bicarb. -Behavioral health consult. -Check AM labs. If no improvement, consult Nephrology. VTE prophylaxis: SCDs. Code Status: Full. Status: change to inpt for > 2 midnight stay. For gen weakness, failure to thrive, severe depression/grief, pancreatitis, dehydration, ABRAHAM on CKD. Disposition: medsur ____ SUBJECTIVE: Today pt feels cold. She has not have anything to drink. OBJECTIVE: Physical Exam: General: The patient is a thin female who is alert and in no acute distress. HEENT: normocephalic, extraocular movements intact, conjunctivae clear. Mucous membranes moist. Neck: trachea midline, no visible masses. CV: +S1/S2, RRR, no MRG. Resp: unlabored, CTAB no RRW. Abd: soft and nondistended. Bowel sounds present. mild tenderness midepigastrium. Musculoskeletal: Normal muscle tone/bulk. Neuro: cranial nerves II XII grossly intact. Intact gross motor and sensory function. Psych: Depressed mood and a flat affect. Skin: Mild pallor. no petechiae. Heme/lymph: No peripheral edema at bilateral lower extremities. Labs/Imaging/Other Tests: Personally reviewed/interpreted. Objective: Vital Signs Temp Pulse Resp BP Pulse Ox 36.4 C 80 16 116/57 L 100 11/30/18 12:59 11/30/18 12:59 11/30/18 12:59 11/30/18 12:59 11/30/18 12:59 Laboratory Results 11/30/18 05:00 11/30/18 05:00 11/29/18 11/30/18 12/01/18 05:59 05:59 05:59 Intake Total 150 1147 Output Total 15 100 Balance 135 1047 - Time Spent With Patient Time Spent with Patient: greater than 35 minutes Time Spent with Patient: Greater than 35 minutes spent on this patients care, greater than 50% of time spent counseling, educating, and coordinating care regarding the above mentioned plan. ICD10 Worksheet Patient Problems: Problems Problem Status Onset Acute renal failure Acute Depression Acute Generalized weakness Acute Vomiting Acute Acute renal failure syndrome Active Hyperkalemia Active Hyponatremia Active Metabolic acidosis Active Pyelonephritis Active Bronchitis Acute Dehydration Acute Gastroenteritis Acute Right humeral fracture Acute
[2018-11-30] MEDS ORDERED: D5W 1/2 NS 1,000 ML IV SCH (14:45)
--- NOTE | 2018-11-30 14:46 | ASMTCMCOM ---
CM Note CM Note Notes: Plan of care reviewed in rounds, 88 year old female admitted via ED with vomiting and abdominal pain. Recent servere onset of depression and FTT. History of TIA, CAD, ABRAHAM. Lost her 2 years ago. CM to follow for needs. Plan: TBD Date Signed: 11/30/2018 02:46 PM Electronically Signed By:Kathy Aceves RN
[2018-11-30] MEDS: SODIUM BICARBONATE 150 MEQ in D5W 1,000 ML IV SCH (18:40)
[2018-11-30] MEDS: FLUTICASONE NASAL 120 SPRAYS/16 GM MDI EACHNARE SCH (21:48)
[2018-12-01] MEDS: SODIUM BICARBONATE 150 MEQ in D5W 1,000 ML IV SCH ×2 (04:54→16:10)
[2018-12-01 05:22] LABS: PLATELET COUNT 181 10^3/uL (150-400)
[2018-12-01] MEDS: ASPIRIN EC 81 MG TAB PO SCH (08:14)
[2018-12-01] MEDS ORDERED: POTASSIUM CL 20 MEQ TAB PO ONE ×2 (08:27→15:42)
--- NOTE | 2018-12-01 09:49 | PDMN ---
Medical Necessity Medical necessity: [facility] M123 Dehydration, A-1 day: 88 yo presents w/ general decline, weakness, vomiting and poor PO intake. Assessment reveals acute renal fx, pancreatitis and metabolic acidosis. Initially OBS for workup/tx but pt requires additional MN for continued gen weakness, failure to thrive, severe depression/grief r/t loss of spouse, pancreatitis, dehydration, ABRAHAM on CKD. Cont IVF and serial labs. Hx CKD, CAD s/p stents, TIA, HTN, HLD, bladder ca. Change to IP status 11/30/18@1623 per MD order
--- NOTE | 2018-12-01 11:44 | PDCONSULT ---
Veterinary Livestock Inspector Note: Assessment/Plan: ABRAHAM on CKD4: baseline Cr around 2-2.2, was 3.6 on presentation and already down to 2.5 in two days with IVFs, likely prerenal. - No need for HD. - Will continue IVFs with bicarb. - Will continue to monitor. - Avoid hypotension and nephrotoxins. Metabolic acidosis: pt has chronic acidosis in setting of CKD and is supposed to be on bicarb tabs at home, unclear if she was taking them recently. Acidosis acutely worse in setting of ABRAHAM. - Would continue IVFs with bicarb for now, can go back to tabs once stabilized. - Will check VBG. Hypokalemia: due to bicarb replacement. - Pt got KCl 40meq this am. - Will continue to monitor q8h for now and replace as needed given ongoing IV bicarb. Thank you for the interesting consult. Nephrology will continue to follow, please call if you have any additional questions or concerns. H & P Stated Complaint: not getting out of bed, n/v Time Seen by Provider: 11/29/18 17:06 HPI/ROS: HPI: Ms. Antonio is an 88 yo F with h/o CKD with baseline Cr around 2.0-2.2, follows with Dr. Phillips as outpatient. Pt was last hospitalized end of 09/2018 here for gastroenteritis with ABRAHAM, Cr down 4->2.3 by discharge and worse acidosis with bicarb improved to 15 by discharge. She does not recall this hospitalization at all. Pt is unable to give me an exact reason why she was admitted this time. Per H&P, pt had been having two weeks of progressive decline at home, not been eating or drinking much and hardly getting up except to go to bathroom. She states she has been eating fine at home nad states she is taking all her meds, including her sodium bicarb. ROS: positive per HPI, rest of 10-point ROS negative - Medical/Surgical History Hx Asthma: No Hx Chronic Respiratory Disease: No Hx Diabetes: No Hx Cardiac Disease: Yes Hx Renal Disease: Yes Hx Cirrhosis: No Hx Alcoholism: No Hx HIV/AIDS: No Hx Splenectomy or Spleen Trauma: No Other PMH: gout, bladder ca and reconstruction, heart stent x 2, appy, tonsils , L JORGE, gall bladdar removed, TIA, hysterectomy - Family History Significant Family History: No pertinent family hx - Social History Smoking Status: Former smoker - Physical Exam Exam: General: alert and oriented, no acute distress Eyes: EOMI, PERRL OP: Clear, MMM Neck: supple, no thyromegaly CV: RRR, no edema BLE Resp: CTA bilat, nonlabored respirations on RA Abd: Soft, NT/ND Neuro: CN II-XII grossly intact, no asterixis Skin: C/D/I, no rash Constitutional: Initial Vital Signs Temperature (C) 36.2 C 11/29/18 17:10 Heart Rate 113 H 11/29/18 17:10 Respiratory Rate 18 11/29/18 17:10 Blood Pressure 141/67 H 11/29/18 17:10 O2 Sat (%) 94 11/29/18 17:10 O2 Delivery Mode Nasal Cannula O2 (L/minute) 2 Allergies/Adverse Reactions: celecoxib Allergy (Unknown, Unverified 10/27/18 10:25) Unknown Home Medications: Medication Instructions Recorded Fluticasone Nasal [Flonase Nasal 1 sprays EACHNARE HS 03/06/12 Susan] Sodium Bicarbonate [Na Bicarb] 1,300 mg PO BID 03/06/12 Allopurinol [Allopurinol 100 MG 100 mg PO DAILY 02/20/16 (*)] Metoprolol Succinate Xr [Toprol Xl 25 mg PO DAILY 02/20/16 25 mg (*)] Aspirin EC [Aspirin EC 81 mg (*)] 81 mg PO DAILY 11/29/18 Lab and Imaging 12/01/18 04:46 12/01/18 04:46 WBC 5.67 10^3/uL (3.80-9.50) 12/01/18 04:46 RBC 2.76 10^6/uL (4.18-5.33) L 12/01/18 04:46 Hgb 8.4 g/dL (12.6-16.3) L 12/01/18 04:46 Hct 24.9 % (38.0-47.0) L 12/01/18 04:46 MCV 90.2 fL (81.5-99.8) 12/01/18 04:46 MCH 30.4 pg (27.9-34.1) 12/01/18 04:46 MCHC 33.7 g/dL (32.4-36.7) 12/01/18 04:46 RDW 15.7 % (11.5-15.2) H 12/01/18 04:46 Plt Count 181 10^3/uL (150-400) 12/01/18 04:46 MPV 10.9 fL (8.7-11.7) 12/01/18 04:46 Neut % (Auto) 71.8 % (39.3-74.2) 12/01/18 04:46 Lymph % (Auto) 15.5 % (15.0-45.0) 12/01/18 04:46 [place] % (Auto) 8.8 % (4.5-13.0) 12/01/18 04:46 Eos % (Auto) 3.0 % (0.6-7.6) 12/01/18 04:46 Baso % (Auto) 0.5 % (0.3-1.7) 12/01/18 04:46 Nucleat RBC Rel Count 0.0 % (0.0-0.2) 12/01/18 04:46 Absolute Neuts (auto) 4.07 10^3/uL (1.70-6.50) 12/01/18 04:46 Absolute Lymphs (auto) 0.88 10^3/uL (1.00-3.00) L 12/01/18 04:46 Absolute Monos (auto) 0.50 10^3/uL (0.30-0.80) 12/01/18 04:46 Absolute Eos (auto) 0.17 10^3/uL (0.03-0.40) 12/01/18 04:46 Absolute Basos (auto) 0.03 10^3/uL (0.02-0.10) 12/01/18 04:46 Absolute Nucleated RBC 0.00 10^3/uL (0-0.01) 12/01/18 04:46 Immature Gran % 0.4 % (0.0-1.1) 12/01/18 04:46 Immature Gran # 0.02 10^3/uL (0.00-0.10) 12/01/18 04:46 Sodium 138 mEq/L (135-145) 12/01/18 04:46 Potassium 2.9 mEq/L (3.5-5.2) L 12/01/18 04:46 Chloride 119 mEq/L (97-110) H 12/01/18 04:46 Carbon Dioxide 12 mEq/l (22-31) L 12/01/18 04:46 Anion Gap 7 mEq/L (6-14) 12/01/18 04:46 BUN 71 mg/dL (7-23) H 12/01/18 04:46 Creatinine 2.5 mg/dL (0.6-1.0) H 12/01/18 04:46 Estimated GFR 18 12/01/18 04:46 Glucose 107 mg/dL (70-100) H 12/01/18 04:46 Calcium 7.8 mg/dL (8.5-10.4) L 12/01/18 04:46 Phosphorus 4.1 mg/dL (2.5-4.5) 11/30/18 05:00 Total Bilirubin 0.5 mg/dL (0.1-1.4) 11/29/18 17:00 Conjugated Bilirubin 0.5 mg/dL (0.0-0.5) 11/29/18 17:00 Unconjugated Bilirubin 0.0 mg/dL (0.0-1.1) 11/29/18 17:00 AST 21 IU/L (14-46) 11/29/18 17:00 ALT 11 IU/L (9-52) 11/29/18 17:00 Alkaline Phosphatase 112 IU/L (38-126) 11/29/18 17:00 Total Protein 7.1 g/dL (6.3-8.2) 11/29/18 17:00 Albumin 2.8 g/dL (3.5-5.0) L 11/30/18 05:00 Lipase 1339 IU/L (23-300) H 11/29/18 17:00 Urine Color RED 11/29/18 18:45 Urine Appearance MODERATELY TURBID 11/29/18 18:45 Urine pH 6.0 (5.0-7.5) 11/29/18 18:45 Ur Specific [place] 1.011 (1.002-1.030) 11/29/18 18:45 Urine Protein 2+ (NEGATIVE) H 11/29/18 18:45 Urine Ketones NEGATIVE (NEGATIVE) 11/29/18 18:45 Urine Blood 1+ (NEGATIVE) H 11/29/18 18:45 Urine Nitrate NEGATIVE (NEGATIVE) 11/29/18 18:45 Urine Bilirubin NEGATIVE (NEGATIVE) 11/29/18 18:45 Urine Urobilinogen NEGATIVE EU (0.2-1.0) 11/29/18 18:45 Ur Leukocyte Esterase 3+ (NEGATIVE) H 11/29/18 18:45 Urine RBC 1-3 /hpf (0-3) 11/29/18 18:45 Urine WBC 50-182 /hpf (0-3) H 11/29/18 18:45 Ur Epithelial Cells TRACE /lpf (NONE-1+) 11/29/18 18:45 Urine Bacteria 2+ /hpf (NONE SEEN) H 11/29/18 18:45 Urine Glucose NEGATIVE (NEGATIVE) 11/29/18 18:45
--- NOTE | 2018-12-01 13:05 | HOSPPROG ---
Hospitalist Progress Note Assessment/Plan: The patient is a 88 year old female with PMH CKD St IV who was admitted for failure to thrive, gen weakness, severe metabolic acidosis . ASSESSMENT/PLAN: ABRAHAM on CKD St IV - improved Dehydration, resolved Acidosis, 2/2 above - improved Acute Pancreatitis, mild Depression, severe Grief Failure to thrive Generalized weakness H/o CAD/TIA -Bicarb drip. Consulted Nephrology for additional recs about acidosis/renal disease. -Encouraged po intake. -PT/OT/ISU. -RD consulted. -Continue home meds. Bicarb held while pt on drip. -Behavioral health consult pending. -Palliative care consult. -Check AM labs. VTE prophylaxis: SCDs. Code Status: Full. Status: change to inpt for > 2 midnight stay. For gen weakness, failure to thrive, severe depression/grief, pancreatitis, dehydration, ABRAHAM on CKD. Disposition: [facility] ____ SUBJECTIVE: Today pt feels cold. She has not have anything to drink. OBJECTIVE: Physical Exam: General: The patient is a thin female who is alert and in no acute distress. HEENT: normocephalic, extraocular movements intact, conjunctivae clear. Mucous membranes moist. Neck: trachea midline, no visible masses. Resp: unlabored. Abd: soft and nondistended. Musculoskeletal: Normal muscle tone/bulk. Neuro: cranial nerves II XII grossly intact. Intact gross motor and sensory function. Psych: Depressed mood and a flat affect. Skin: Mild pallor. no petechiae. Heme/lymph: No peripheral edema at bilateral lower extremities. Labs/Imaging/Other Tests: Personally reviewed/interpreted. FeNa 1.8%. Objective: Vital Signs Temp Pulse Resp BP Pulse Ox 36.3 C 60 16 110/63 100 12/01/18 12:00 12/01/18 12:00 12/01/18 12:00 12/01/18 12:00 12/01/18 12:00 Laboratory Results 12/01/18 04:46 11/30/18 12/01/18 12/02/18 05:59 05:59 05:59 Intake Total 2991 Output Total 300 Balance 2991 -300 - Time Spent With Patient Time Spent with Patient: greater than 35 minutes Time Spent with Patient: Greater than 35 minutes spent on this patients care, greater than 50% of time spent counseling, educating, and coordinating care regarding the above mentioned plan. ICD10 Worksheet Patient Problems: Problems Problem Status Onset Acute renal failure Acute Depression Acute Generalized weakness Acute Vomiting Acute Acute renal failure syndrome Active Hyperkalemia Active Hyponatremia Active Metabolic acidosis Active Pyelonephritis Active Bronchitis Acute Dehydration Acute Gastroenteritis Acute Right humeral fracture Acute
[2018-12-01] MEDS: FLUTICASONE NASAL 120 SPRAYS/16 GM MDI EACHNARE SCH (20:15)
[2018-12-02 04:04] LABS: PLATELET COUNT 184 10^3/uL (150-400)
[2018-12-02] MEDS ORDERED: POTASSIUM CL 20 MEQ TAB PO ONE (05:21)
[2018-12-02] MEDS: SODIUM BICARBONATE 150 MEQ in D5W 1,000 ML IV SCH (06:15)
[2018-12-02] MEDS: ONDANSETRON 4 MG/2 ML VIAL IVP PRN (06:30)
[2018-12-02] MEDS: ASPIRIN EC 81 MG TAB PO SCH (10:38)
--- NOTE | 2018-12-02 13:33 | ASMTCMCOM ---
CM Note CM Note Notes: Patient plan of care reviewed in interdisciplinary rounds. Mar MUNOZ RN met with patient this am. Patient improving from renal standpoint. Family requesting evaluation for decisional capacity, to order cog eval through speech. CM to follow for needs. Call put out to son Demetrius. Plan: TBD Date Signed: 12/02/2018 01:32 PM Electronically Signed By:Kathy Aceves RN
--- NOTE | 2018-12-02 19:08 | HOSPPROG ---
Hospitalist Progress Note Assessment/Plan: The patient is a 88 year old female with PMH CKD St IV who was admitted for failure to thrive, gen weakness, severe metabolic acidosis . ASSESSMENT/PLAN: Acute UTI CKD St IV ABRAHAM, resolved Dehydration, resolved Acidosis, 2/2 above - improved to baseline Hypophosphatemia Acute Pancreatitis, mild - clinically resolved Depression, severe Grief Failure to thrive Generalized weakness H/o CAD/TIA -spent 20 minutes talking w/ family/patient. She is not at her baseline status, mentally. I suspected the acidosis was causing her symptoms but now that that is back to her baseline it may still take a while for her to improve. -UA was contaminated on admission. Recheck UA to get clean catch. Starting ceftriaxone, in case UTI is contributing to her overall symptoms. 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 -Bicarb drip. Consulted Nephrology for additional recs about acidosis/renal disease. -replace phos. -Encouraged po intake. -PT/OT/ISU. -RD consulted. -Continue home meds. po bicarb held while pt on drip. -Behavioral health consult pending -- FU recs. -Palliative care consult -- they are waiting for behavioral health consult to be done. -Check AM labs. VTE prophylaxis: SCDs. Code Status: Full. Status: inpt for > 2 midnight stay Disposition: [facility] -- CM consulted -- need to work out dispo w/ family. ____ SUBJECTIVE: Today pt feels ok. She says she is not a pill taker and she does not want to be on pills long-term. OBJECTIVE: Physical Exam: General: The patient is a thin female who is alert and in no acute distress. HEENT: normocephalic, extraocular movements intact, conjunctivae clear. Mucous membranes moist. Neck: trachea midline, no visible masses. Resp: unlabored. Abd: soft and nondistended. Musculoskeletal: Normal muscle tone/bulk. Neuro: cranial nerves II - XII grossly intact. Intact gross motor and sensory function. Psych: Depressed mood and a flat affect. Skin: Mild pallor. no petechiae. Heme/lymph: No peripheral edema at bilateral lower extremities. Labs/Imaging/Other Tests: Personally reviewed/interpreted. FeNa 1.8%. Objective: Vital Signs Temp Pulse Resp BP Pulse Ox 36.4 C 70 16 135/68 H 99 12/02/18 16:00 12/02/18 16:00 12/02/18 16:00 12/02/18 16:00 12/02/18 16:00 Laboratory Results 12/02/18 03:45 12/02/18 11:44 12/01/18 12/02/18 12/03/18 05:59 05:59 05:59 Intake Total 2991 950 2984 Output Total 300 300 Balance 2991 650 9954 - Time Spent With Patient Time Spent with Patient: greater than 35 minutes Time Spent with Patient: Greater than 35 minutes spent on this patients care, greater than 50% of time spent counseling, educating, and coordinating care regarding the above mentioned plan. ICD10 Worksheet Patient Problems: Problems Problem Status Onset Acute renal failure Acute Depression Acute Generalized weakness Acute Vomiting Acute Acute renal failure syndrome Active Hyperkalemia Active Hyponatremia Active Metabolic acidosis Active Pyelonephritis Active Bronchitis Acute Dehydration Acute Gastroenteritis Acute Right humeral fracture Acute
--- NOTE | 2018-12-02 19:19 | SOAPPROG ---
SOAP Progress Note Assessment/Plan: Assessment: 1. arf/crf: rapidly better with ivf, current creat actually sl < typical b/l. D/ c ivf. 2. met acidosis: rapidly resolved with iv bicarb, will d/c. Tentatively plan to resume po bicarb tomorrow depending on labs. 3. hypoPhos: supplementing. Likely exacerbated by iv bicarb. Plan: 12/02/18 19:17 Subjective: Doesn't remember coming to hospital but believes she is feeling better, though not all the way back to her normal self. Objective: Vital Signs Temp Pulse Resp BP Pulse Ox 36.4 C 70 16 135/68 H 99 12/02/18 16:00 12/02/18 16:00 12/02/18 16:00 12/02/18 16:00 12/02/18 16:00 Laboratory Results 12/02/18 03:45 12/02/18 11:44 12/01/18 12/02/18 12/03/18 05:59 05:59 05:59 Intake Total 2991 950 2984 Output Total 300 300 Balance 2991 650 2684 Physical Exam - Physical Exam General Appearance: no apparent distress, other (frail) Respiratory: lungs clear Cardiac/Chest: regular rate, rhythm Abdomen: non-tender, soft Extremities: pedal edema (none) ICD10 Worksheet Patient Problems: Problems Problem Status Onset Acute renal failure Acute Depression Acute Generalized weakness Acute Vomiting Acute Acute renal failure syndrome Active Hyperkalemia Active Hyponatremia Active Metabolic acidosis Active Pyelonephritis Active Bronchitis Acute Dehydration Acute Gastroenteritis Acute Right humeral fracture Acute
[2018-12-02] MEDS: POTASSIUM/SODIUM PHOSPHATE 1 PKT PO SCH (20:23)
[2018-12-02] MEDS: FLUTICASONE NASAL 120 SPRAYS/16 GM MDI EACHNARE SCH (20:23)
[2018-12-03] MEDS: ASPIRIN EC 81 MG TAB PO SCH (09:38)
[2018-12-03] MEDS: POTASSIUM/SODIUM PHOSPHATE 1 PKT PO SCH ×4 (13:04→21:12)
--- NOTE | 2018-12-03 13:11 | HOSPPROG ---
Hospitalist Progress Note Assessment/Plan: The patient is a 88 year old female with PMH CKD St IV who was admitted for failure to thrive, gen weakness, severe metabolic acidosis . 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 Code Status: Full. cont inpatient D/w nursing, CM, Palliative, Pharmacy Subjective: no cp or sob. no n/v. appears to be happy. Does not know why she is here Objective: Vital Signs Temp Pulse Resp BP Pulse Ox 36.6 C 73 18 131/81 H 96 12/03/18 12:41 12/03/18 12:41 12/03/18 12:41 12/03/18 12:41 12/03/18 12:41 Laboratory Results 12/02/18 03:45 12/03/18 05:15 12/02/18 12/03/18 12/04/18 05:59 05:59 05:59 Intake Total 950 3321.5 50 Output Total 300 300 Balance 650 3021.5 50 - Physical Exam Constitutional: not in pain Eyes: PERRL, EOMI Ears, Nose, Mouth, Throat: moist mucous membranes, hearing normal Cardiovascular: No JVD, No tachycardia, No bradycardia, No edema Respiratory: no respiratory distress, No respiratory distress Gastrointestinal: No guarding, No distension Musculoskeletal: generalized weakness Neurologic: No AAOx3 Psychiatric: not anxious, encephalopathic, No interacting appropriately Lymph, Heme, Immunologic: No petechiae ICD10 Worksheet Patient Problems: Problems Problem Status Onset Acute renal failure Acute Depression Acute Generalized weakness Acute Vomiting Acute Acute renal failure syndrome Active Hyperkalemia Active Hyponatremia Active Metabolic acidosis Active Pyelonephritis Active Bronchitis Acute Dehydration Acute Gastroenteritis Acute Right humeral fracture Acute
--- NOTE | 2018-12-03 14:12 | SOAPPROG ---
SOAP Progress Note Assessment/Plan: Assessment: 1. arf/crf: rapidly better with ivf, current creat actually sl < typical b/l. 2. met acidosis: rapidly resolved with iv bicarb. Has had persistent (though milder) acidosis, will resume outpt po bicarb dosing to avoid recurrence. 3. hypoPhos: continue supplementation. will sign off. Plan: 12/02/18 19:17 12/03/18 14:10 Subjective: Up in chair, no c/o. Objective: Vital Signs Temp Pulse Resp BP Pulse Ox 36.6 C 73 18 131/81 H 96 12/03/18 12:41 12/03/18 12:41 12/03/18 12:41 12/03/18 12:41 12/03/18 12:41 Laboratory Results 12/02/18 03:45 12/03/18 05:15 12/02/18 12/03/18 12/04/18 05:59 05:59 05:59 Intake Total 950 3321.5 50 Output Total 300 300 Balance 650 3021.5 50 Physical Exam - Physical Exam General Appearance: alert, no apparent distress, other (frail) Respiratory: lungs clear Cardiac/Chest: regular rate, rhythm Extremities: pedal edema (none) ICD10 Worksheet Patient Problems: Problems Problem Status Onset Acute renal failure Acute Depression Acute Generalized weakness Acute Vomiting Acute Acute renal failure syndrome Active Hyperkalemia Active Hyponatremia Active Metabolic acidosis Active Pyelonephritis Active Bronchitis Acute Dehydration Acute Gastroenteritis Acute Right humeral fracture Acute
--- NOTE | 2018-12-03 14:13 | ASMTCMCOM ---
CM Note CM Note Notes: Patient plan of care reviewed in am rounds. 88 year old female admitted with dehydration, ABRAHAM and UTI. Lives with son who is her caregiver. Likely would benefit from C and spoke to her son Demetrius about hiring a caregiver. The family is interested in a hospital bed. I have provided them with the medical equipment [employer] Demetrius provided me with a copy of her most form which indicated no CPR. CM to follow. Plan: DC to home with C when medically cleared for discharge. Date Signed: 12/03/2018 02:12 PM Electronically Signed By:Kathy Aceves RN
[2018-12-03] MEDS: SODIUM BICARBONATE 650 MG TAB PO SCH (21:02)
[2018-12-03] MEDS: FLUTICASONE NASAL 120 SPRAYS/16 GM MDI EACHNARE SCH (21:03)
[2018-12-04 04:57] LABS: PLATELET COUNT 172 10^3/uL (150-400)
[2018-12-04] MEDS: POTASSIUM/SODIUM PHOSPHATE 1 PKT PO SCH ×4 (09:44→20:29)
[2018-12-04] MEDS: ASPIRIN EC 81 MG TAB PO SCH (09:45)
[2018-12-04] MEDS: SODIUM BICARBONATE 650 MG TAB PO SCH ×2 (09:45→21:00)
[2018-12-04] MEDS: ONDANSETRON 4 MG/2 ML VIAL IVP PRN (11:28)
[2018-12-04] MEDS ORDERED: NS 1,000 ML IV SCH (12:30)
[2018-12-04] MEDS: CHOLECALCIFEROL VIT D3 1,000 UNITS TAB PO SCH (12:53)
--- NOTE | 2018-12-04 12:55 | HOSPPROG ---
Hospitalist Progress Note Assessment/Plan: The patient is a 88 year old female with PMH CKD St IV who was admitted for failure to thrive, gen weakness, severe metabolic acidosis . ASSESSMENT/PLAN: Nausea and vomiting, start today Acute UTI, Ecoli. s/p [address] CKD [address] IV ABRAHAM, resolved Dehydration, resolved Acidosis, 2/2 above - improved to baseline Hypophosphatemia Acute Pancreatitis, mild - clinically resolved Depression, severe Grief Failure to thrive Generalized weakness H/o CAD/TIA Likely Dementia, advanced Plan: Stop Rocephin, treated with 3 days Cog Eval: the Pt does have capacity to make decision Bicarb was restarted Normal TSH Start Vitamin D consider SSRI as an op. no clear depression here PT/OT Goal is to return home where she is taken care of by her son VTE prophylaxis: SCDs. Code Status: Full. For now, given new nausea and vomiting, would cont inpatient D/w nursing, CM, Palliative, Pharmacy Subjective: + emesis. Says she doesnt feel the best. no abd pain. Objective: Vital Signs Temp Pulse Resp BP Pulse Ox 36.6 C 82 16 113/59 L 99 12/04/18 12:49 12/04/18 12:49 12/04/18 12:49 12/04/18 12:49 12/04/18 12:49 Laboratory Results 12/04/18 04:40 12/04/18 04:40 12/03/18 12/04/18 12/05/18 05:59 05:59 05:59 Intake Total 3321.5 1200 Output Total 300 Balance 3021.5 1200 - Physical Exam Constitutional: chronically ill appearing Eyes: PERRL, EOMI Ears, Nose, Mouth, Throat: moist mucous membranes, hearing normal Cardiovascular: regular rate and rhythym, No edema Respiratory: no respiratory distress, no rales or rhonchi, clear to auscultation Gastrointestinal: normoactive bowel sounds, soft, non-tender abdomen Skin: warm Musculoskeletal: generalized weakness Psychiatric: interacting appropriately, not anxious, not encephalopathic Lymph, Heme, Immunologic: No petechiae ICD10 Worksheet Patient Problems: Problems Problem Status Onset Acute renal failure Acute Depression Acute Generalized weakness Acute Vomiting Acute Acute renal failure syndrome Active Hyperkalemia Active Hyponatremia Active Metabolic acidosis Active Pyelonephritis Active Bronchitis Acute Dehydration Acute Gastroenteritis Acute Right humeral fracture Acute
[2018-12-04] MEDS: FLUTICASONE NASAL 120 SPRAYS/16 GM MDI EACHNARE SCH (21:01)
[2018-12-05 07:45] VITALS: BP 122/59
[2018-12-05] MEDS: CHOLECALCIFEROL VIT D3 1,000 UNITS TAB PO SCH (07:53)
[2018-12-05] MEDS: ASPIRIN EC 81 MG TAB PO SCH (07:53)
[2018-12-05] MEDS: POTASSIUM/SODIUM PHOSPHATE 1 PKT PO SCH ×2 (07:54→13:04)
[2018-12-05] MEDS: SODIUM BICARBONATE 650 MG TAB PO SCH (07:54)
--- NOTE | 2018-12-05 09:59 | ASMTCMCOM ---
CM Note CM Note Notes: Spoke with pt's son at the hospital. Pt currently refusing SNF and PT is recommending HHC. OT feels pt needs 24/7 supervision. Pt and son have agreed to [facility] PT/OT as pt lives with other son who is available for caregiving and family is to arrange unskilled supervision through their [employer] network when son is not available. [facility] referral sent and they have accepted. Pt discharge date TBD as she starting vomiting yesterday. CM to follow. D/C Plan: Home with [facility] and son and private duty unskilled support Date Signed: 12/05/2018 09:58 AM Electronically Signed By:Tammie Gillespie
[2018-12-05] MEDS ORDERED: FUROSEMIDE 20 MG TAB PO ONE (12:50)
--- NOTE | 2018-12-05 12:55 | PDDCSUM ---
Discharge Summary Discharge Summary: The patient is a 88 year old female with PMH CKD St IV who was admitted for failure to thrive, gen weakness, severe metabolic acidosis, and acute renal failure. She was started on IVF and Cr returned to baseline. She has not further e/o dehydration and is tolerating PO well. There were concerns about adequate mentations and she had ST perform Cog eval and this was consistent with her decision capacity. She nausea and emesis once yesterday but this has resolved. She is being d/c to home with [facility] She is found to require 2 L O2. Etiology is unclear. Does not have any e/o volume overload or pneumonia. She will f/u with her PCP in one week. DDX: Nausea and vomiting, resolved Acute UTI, Ecoli. 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 D/W NURSING, FAMILY, AND CM
--- NOTE | 2018-12-05 12:57 | PDHOMEO2F ---
Home Oxygen Face to Face Home Orders: I certify that a physician or a nurse practitioner or physician's personal injury legal assistant has had a [id number] encounter with this patient on the date of this order due to the diagnosis listed, which relates to the primary reason the patient requires home oxygen. Alternative treatments have been tried, or considered, and deemed ineffective. It is anticipated that supplemental oxygen will result in improvement with treatment. Home oxygen qualifying diagnosis: CHRONIC RESPIRATORY FAILURE SpO2 on room air (%): 85 Frequency of home oxygen needed: continuous Home oxygen liters per minute: 2 Home oxygen delivery device: nasal cannula Concentrator: Yes E-tanks for mobility and back up: Yes If ordering portable O2, is the patient mobile in the home?: Yes I certify that, based on these findings, the home oxygen is medically necessary for this patient for the following length of time. Length of time home oxygen needed: 99 years
--- NOTE | 2018-12-05 13:00 | PDIAF ---
- Diagnosis Diagnosis: WEAKNESS Code Status: Full Code - Medication Management Discharge Medications: electronically signed and located in the Home Medication List. - Orders Services needed: Physical Therapy, Occupational Therapy Isolation Type: None - Follow Up Care Current Providers and Referrals: Patient,NotPresent [Unknown] - As per Instructions
--- NOTE | 2018-12-05 14:31 | ASMTLACE ---
MARYE Length of stay for Answers: 4-6 days current admission Acuity / Level of Answers: Yes Care: Did the patient have an inpatient admission? Comorbidities - select Answers: Any tumor (including all that apply lymphoma or leukemia) Cerebrovascular disease (CVA, TIA, aneurysms, vasc ular dementia) Coronary Artery Disease Dementia Moderate or severe liver or renal disease # of Emergency department Answers: 1-2 visits in the last 6 months Social determinants Answers: Mental health diagnosis (anxiety, depression, pers onality disorders, etc.) Score: 23 Date Signed: 12/05/2018 02:30 PM Electronically Signed By:Tammie Gillespie
--- NOTE | 2018-12-05 14:34 | ASDISCHSUM ---
Discharge Information Plan Status:Home with Home Health Medically Cleared to Leave:12/04/2018 Discharge Date:12/04/2018 CM D/C Disposition:Home Health Service ADT D/C Disposition:Home Health Service Projected Discharge Date:12/05/2018 11:00 AM Transportation at D/C:Family Discharge Delay Reason: Follow-Up Date:12/05/2018 11:00 AM Discharge Slot: Final Diagnosis:Dementia, ABRAHAM, weakness, vomiting Placement Information Referral Type:Palliative Care Referral ID:[id number] Provider [facility] Address 1:[address] [place] Address 2: City:[place] Selection Factors: State:[place] Referral Type:*Home Health Care Services Referral ID:[id number] Provider Name:[facility] Address 1:[address], [address] Address 2: City:[place] Selection Factors: State:[place] Patient Contact Information Contact Name:JOSE Relationship:Son Address:[address] Work Phone: City:[place] [facility] Phone: [facility]/Zip Code:[place] [address] Email: Financial Information Financial Class:Medicare Primary Plan Desc:MEDICARE INPATIENT Primary Plan Number:[id number] Secondary Plan Desc:[employer] FEDERAL PLAN Secondary Plan Number:[id number] Assessment Information LACE LACE Length of stay for Answers: 4-6 days current admission Acuity / Level of Answers: Yes Care: Did the patient have an inpatient admission? Comorbidities - select Answers: Any tumor (including all that apply lymphoma or leukemia) Cerebrovascular disease (CVA, TIA, aneurysms, vasc ular dementia) Coronary Artery Disease Dementia Moderate or severe liver or renal disease # of Emergency department Answers: 1-2 visits in the last 6 months Social determinants Answers: Mental health diagnosis (anxiety, depression, pers onality disorders, etc.) Score: 23 Date Signed: 12/05/2018 02:30 PM Electronically Signed By:Tammie Gillespie [facility] CM Progress Note CM Note CM Note Notes: Plan of care reviewed in rounds, 88 year old female admitted via ED with vomiting and abdominal pain. Recent servere onset of depression and FTT. History of TIA, CAD, ABRAHAM. Lost her 2 years ago. CM to follow for needs. Plan: TBD Date Signed: 11/30/2018 02:46 PM Electronically Signed By:Kathy Aceves RN [facility] CM Progress Note CM Note CM Note Notes: Patient plan of care reviewed in interdisciplinary rounds. Mar MUNOZ RN met with patient this am. Patient improving from renal standpoint. Family requesting evaluation for decisional capacity, MD to order cog eval through speech. CM to follow for needs. Call put out to jam Romo. Plan: TBD Date Signed: 12/02/2018 01:32 PM Electronically Signed By:Kathy Aceves RN [facility] CM Progress Note CM Note CM Note Notes: Patient plan of care reviewed in am rounds. 88 year old female admitted with dehydration, ABRAHAM and UTI. Lives with son who is her caregiver. Likely would benefit from C and spoke to her son Demetrius about hiring a caregiver. The family is interested in a hospital bed. I have provided them with the [employer]. Demetrius provided me with a copy of her most form which indicated no CPR. CM to follow. Plan: DC to home with C when medically cleared for discharge. Date Signed: 12/03/2018 02:12 PM Electronically Signed By:Kathy Aceves RN [facility] CM Progress Note CM Note CM Note Notes: Spoke with pt's son at the hospital. Pt currently refusing SNF and PT is recommending HHC. OT feels pt needs / supervision. Pt and son have agreed to [facility] PT/OT as pt lives with other son who is available for caregiving and family is to arrange unskilled supervision through their [employer] network when son is not available. [facility] referral sent and they have accepted. Pt discharge date TBD as she starting vomiting yesterday. CM to follow. D/C Plan: Home with [facility] and son and private duty unskilled support Date Signed: 12/05/2018 09:58 AM Electronically Signed By:Tammie Gillespie Case Management Discharge Plan Note Case Management Discharge Discharge Order Complete? Answers: Yes Patient to Obtain Answers: via Family Medications Transportation Arranged Answers: Family/Friends Transport will Pick (Date 12/05/2018 12:00 AM & Time) Faxed Final Orders Answers: Yes Agency/Facility Transfer Answers: Yes Report Printed & Faxed to Receiving Agency Family Notified Answers: Yes Notes: son in the room Discharge Comments Notes: Pt to discharge home with support from [facility] PT/OT and [facility] Palliative care. Referrals sent and both agencies notified of discharge. Family is also arranging for private sitters through their [facility]. Pt also started on NOC O2, and oxygen company contacted for delivery by RT. No further CM needs noted at this time. CM available should needs change. Date Signed: 12/05/2018 02:33 PM Electronically Signed By:Tammie Gillespie Intervention Information
--- NOTE | 2018-12-09 20:25 | PQFORM ---
PHYSICIAN QUERY FORM Needs Your Response This query form is being sent to you to assure this patient record is coded properly. Please respond to the question below: CLEAN ENERGY POLICY ANALYST QUESTION: Dr Jacobo Acute Pancreatitis was mentioned in the Progress Notes but was not listed in the Discharge Summary. Did this patient have Acute Pancreatitis ? __x_ Yes ___ No ___ Other (Please Specify ) ___ Unable to determine Thank You Ivonne MUHAMMAD [employer] Installer INSTRUCTIONS FOR RESPONSE: Answer question by clicking on the "Edit Document" button. Move cursor to area below the stars. When complete, hit "Save." Click on the "Sign" button, then click "Sign" again. Type in your PIN and hit "Enter." MTDD
== END 2018-12-05 17:30 | disposition home health service (06) | DRG 682 ==
LOC: EDUNIT# → F1N 20:31 → OBSVTOIN 11-30 16:23
PROVIDERS: ADMIT Internal Medicine; ATTEND Internal Medicine
DX: N17.9 Acute kidney failure, unspecified (principal); N39.0 Urinary tract infection, site not specified; B96.20 Unspecified Escherichia coli [E. coli] as the cause of diseases classified elsewhere; K85.90 Acute pancreatitis without necrosis or infection, unspecified; I12.9 Hypertensive chronic kidney disease with stage 1 through stage 4 chronic kidney disease, or unspecified chronic kidney disease; N18.9 Chronic kidney disease, unspecified; R62.7 Adult failure to thrive; E87.2 Acidosis; E83.39 Other disorders of phosphorus metabolism; J96.10 Chronic respiratory failure, unspecified whether with hypoxia or hypercapnia; F32.2 Major depressive disorder, single episode, severe without psychotic features; E86.0 Dehydration; F03.90 Unspecified dementia, unspecified severity, without behavioral disturbance, psychotic disturbance, mood disturbance, and anxiety; E78.5 Hyperlipidemia, unspecified; I25.10 Atherosclerotic heart disease of native coronary artery without angina pectoris; Z96.642 Presence of left artificial hip joint; Z86.73 Personal history of transient ischemic attack (TIA), and cerebral infarction without residual deficits; Z79.82 Long term (current) use of aspirin; Z95.5 Presence of coronary angioplasty implant and graft; Z87.891 Personal history of nicotine dependence; Z85.51 Personal history of malignant neoplasm of bladder
CPT/HCPCS: 82607-90; 92507-GN; 92523-GN; 96374; 97116-GP; 97162-GP; 97165-GO; 97530-GO; 97530-GP; 97535-GO; G0378; J0696; J2405